=== PATIENT | female | born 1965 | race Caucasian/White ===

== ENCOUNTER → 2016-06-05 | Outpatient (CLI) | payer BC ==
--- NOTE | 2016-06-05 19:00 | WWHP ---
DATE OF SERVICE: 06/05/2016 CHIEF COMPLAINT: The patient is here for her routine gynecologic exam. HPI: This is a 51-year-old G1, P1-0-0-2 with an LMP of 2007. The patient has been essentially amenorrheic since her endometrial ablation in 2007. She denies any significant hot flashes. She is without gynecologic complaints and denies any vaginal bleeding for several years. PAST MEDICAL HISTORY: Hypothyroidism, anxiety, depression. Dr. De La Cruz is her primary care physician. MEDICATIONS: 1. Synthroid 150 mcg daily. 2. Xanax 1 mg b.i.d. p.r.n. 3. Wellbutrin. XR 300 mg q.a.m. 4. Aspirin 81 mg daily. 5. Multivitamin daily. 6. Vitamin D. 7. Biotin. 8. Cranberry supplement. 9. Iron. 10. Probiotic. 11. Echinacea. 12. Vitamin B12. 13. Fish oil supplement. 14. Calcium. 15. Zinc daily. ALLERGIES: No known drug allergies. PAST SURGICAL HISTORY: Appendectomy, and removal of ruptured ovarian cyst in the past. These were done together laparoscopically, laparoscopic cholecystectomy, lap band surgery approximately 2008, colonoscopy at age 48. Past OB history: Vaginal delivery x1. 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 SOCIAL HISTORY: She denies tobacco and drug use and has 0 to 2 alcoholic drinks per month. 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 FAMILY HISTORY: Father had an MO and diabetes. REVIEW OF SYSTEMS: She did lose quite a bit of weight after her lap band surgery in 2008. Her weight has been stable for at least the last couple of years. She denies respiratory, cardiac, or GI problems. PHYSICAL EXAM: Blood pressure 127/60. Height 5 feet 6-1/2 inches. Weight 164 pounds. Temperature 97.6, pulse 69. This a well-developed, well-nourished white female who is alert and oriented x3 in no acute distress. HEENT is within normal limits. NECK: Supple without mass or thyromegaly. CHEST AND LUNGS: Clear to auscultation. HEART: Regular rate and rhythm. Breasts are without mass or discharge. Axillary exam is negative for adenopathy. BACK: Negative for CVA tenderness. ABDOMEN: Soft, nontender, without palpable masses. PELVIC EXAM: External genitalia reveals mild atrophy without lesions. Cervix and vagina reveals mild atrophy without lesions. There is no significant prolapse. The uterus is midposition, nongravid size and nontender. There are no palpable adnexal masses or tenderness. Rectovaginal exam is negative for mass or tenderness and is negative for occult blood. EXTREMITIES: Nontender. IMPRESSION: 1. A 51-year-old female with normal gynecologic exam. 2. Probable perimenopause. 3. Amenorrhea following her endometrial ablation. PLAN: 1. Pap smear was performed. 2. Self-breast examination was discussed. 3. Mammogram was done in 07/2015, and a slip was given to patient for this to repeat after one year. 4. Osteoporosis prevention was discussed. 5. She will call if she has vaginal bleeding or significant menopausal symptoms. 6. She will return in one year.
--- NOTE | 2016-06-19 21:46 | WWPLE ---
June 19, 2016 RE: Marina Haley A Dear Dr. De La Cruz, I had the pleasure seeing your patient Marina Haley in the office on 06/05/16. As you know, she is a 51-year-old female who presented for her routine gynecologic exam. She has been amenorrheic since her endometrial ablation and is probably perimenopausal. Her gynecologic exam was unremarkable. Her Pap smear did come back showing atypical squamous cells of undetermined significance. Reflex HPV testing was negative for high-risk HPV. With this minor abnormality and negative HPV testing, I have recommended repeating the Pap smear in one year, and nothing further needs to be done at this time. Her Pap smear will be due in 08/13, and an order slip was given to the patient for this. Thank you for allowing me to participate in the care of your patient. Please do not hesitate to call if you have any questions. Sincerely, Orestes Ferrara M.D. DAVID
== END | disposition home or self-care (01) ==
LOC: WWCWWP 08:08
PROVIDERS: ATTEND Obstetrics & Gynecology

== ENCOUNTER → 2016-08-01 | Outpatient (CLI) | payer BC ==
--- NOTE | 2016-08-02 11:33 | MM ---
Reason for exam: screening (asymptomatic). Last mammogram was performed 1 year ago. History: Patient had first child at age 32. Took hormonal contraceptives for 1 year. Physical Findings: A clinical breast exam by your physician is recommended on an annual basis and results should be correlated with mammographic findings. MG 3D Screening Mammo W/Cad Bilateral CC and MLO view(s) were taken. Prior study comparison: August 01, 2015, bilateral MG 3d screening mammo w/cad. February 05, 2014, bilateral MG screening mammo w CAD. The breast tissue is heterogeneously dense. This may lower the sensitivity of mammography. Finding: There are grouped/clustered calcifications in the right breast approximate distance is 9.1cm from the nipple. New finding since August 01, 2015 and February 05, 2014. ASSESSMENT: Incomplete: need additional imaging evaluation, BI-RAD 0 RECOMMENDATION: Special view mammogram of the right breast. [facility] will attempt to contact patient to return for supplemental views.
== END | disposition home or self-care (01) ==
LOC: RADMAMWWP 07:11
PROVIDERS: ATTEND Obstetrics & Gynecology
DX: Z12.31 Encounter for screening mammogram for malignant neoplasm of breast (principal)
CPT/HCPCS: 77063; G0202

== ENCOUNTER → 2016-08-28 | Outpatient (CLI) | payer BC ==
--- NOTE | 2016-08-28 11:35 | MM ---
Reason for exam: additional evaluation requested from abnormal screening. Last mammogram was performed 1 month ago. History: Patient had first child at age 32. Took hormonal contraceptives for 1 year. Physical Findings: Nurse did not find any significant physical abnormalities on exam. MG Work Up Mamm w CAD RT ML, CC with magnification, and MLO with magnification view(s) were taken of the right breast. Prior study comparison: August 01, 2016, bilateral MG 3d screening mammo w/cad. August 01, 2015, bilateral MG 3d screening mammo w/cad. Finding: There are typically benign round, regional, diffuse, and grouped calcifications in the right breast. No suspicious cluster of microcalcifications. Increase in number of calcifications since August 01, 2016 and August 01, 2015. These results were verbally communicated with the patient and result sheet given to the patient on 08/28/16. ASSESSMENT: Benign, BI-RAD 2 RECOMMENDATION: Return to routine screening mammogram schedule for both breasts.
== END | disposition home or self-care (01) ==
LOC: RADMAMWWP 10:27
PROVIDERS: ATTEND Obstetrics & Gynecology
DX: R92.8 Other abnormal and inconclusive findings on diagnostic imaging of breast (principal)

== ENCOUNTER → 2017-08-29 | Outpatient (CLI) | payer BC ==
--- NOTE | 2017-08-29 11:54 | MM ---
Reason for exam: additional evaluation requested from abnormal screening. Last mammogram was performed less than 1 month ago. History: Patient had first child at age 32. Took hormonal contraceptives for 1 year. Physical Findings: A clinical breast exam by your physician is recommended on an annual basis and results should be correlated with mammographic findings. MG 3D Work Up W/Cad RUCHI Bilateral ML with magnification, CC with magnification, and ML view(s) were taken. Prior study comparison: August 14, 2017, bilateral MG 3d screening mammo w/cad. August 28, 2016, right breast MG work up mamm w CAD RT. The breast tissue is heterogeneously dense. This may lower the sensitivity of mammography. There are 3 groups of upper outer quadrant right breast calcifications similar to 2017, one at middle depth and two at posterior depth. The left central middle depth 4mm group of faint calcifications is not seen on CC and appear punctate. 6 month follow up bilateral diagnostic mammogram is recommended for both breasts. Numerous other bilateral scattered calcifications are seen. These results were verbally communicated with the patient and result sheet given to the patient on 08/29/17. ASSESSMENT: Probably benign, BI-RAD 3 RECOMMENDATION: Follow-up diagnostic mammogram of both breasts in 6 months.
--- NOTE | 2017-09-03 17:16 | P.PN ---
Progress Note - Text Progress Note Date: 09/03/17 And order slip for a diagnostic bilateral mammogram to be done in late January or early February in 2018 was mailed to the patient.
== END | disposition home or self-care (01) ==
LOC: RADMAMWWP 09:28
PROVIDERS: ATTEND Obstetrics & Gynecology
DX: R92.8 Other abnormal and inconclusive findings on diagnostic imaging of breast (principal)
CPT/HCPCS: 77062; 77066

== ENCOUNTER → 2018-03-14 | Outpatient (CLI) | payer BC ==
[2018-03-14 10:05] VITALS: BP 107/57; PULSE 71; RESP 18; TEMP 96.9; BMI 22.7
--- NOTE | 2018-03-14 10:48 | P.GSHP ---
History of Present Illness H&P Date: 03/14/18 Chief Complaint: abnormal mammogram of the right breast Bo is a 52-year-old white female who presents with a mammographic abnormality noted in her right breast. The patient had a bilateral diagnostic mammogram performed on [id number]. In the left breast there was noted to be architectural distortion in the upper quadrant disbursing on compression and short-term follow-up was recommended. In the right breast multiple spherical calcifications were noted. Additionally there were some suspicious punctate calcifications in the right lower outer quadrant 10 cm from the nipple and biopsy was recommended. These were felt to be new since 08/29/2017. The patient herself denies any changes in her breast. She does not feel any masses or nodules for which she is concerned. She has no nipple discharge or changes for which she is concerned. She has no history of trauma or infection of the breast. She denies any pain in her breast. Family history: 1.no history of cancer 2. father heart disease and DM Hormonal history: Menarche:10 Pregnancies: 1, (2 children), at 32, breast fed: no menopause: uterine ablation at about 38 BCP: 5 years hormones: none Past Surgical History: 1. uterine ablation 2. appy 3. ruptured ovarin cyst at the time of appy 4. gallbladder 5. lap-band (lost 105 pounds) 6. abcess right thigh 7. heart cath Past Medical History: 1. chest pain/follows with cardiology Social History: smoke: none alcohol: occasional/monthy drugs: none - Constitutional Comment: BMI 22.7 Constitutional: Denies chills, Denies fever - EENT Comment: bifocal glasses Eyes: denies blurred vision, denies pain Ears: deny: decreased hearing, tinnitus Ears, nose, mouth and throat: Denies headache, Denies sore throat - Breasts Breasts: bilateral: as per HPI - Cardiovascular Cardiovascular: Reports as per HPI, Reports chest pain - Respiratory Respiratory: Denies cough, Denies 7 - Gastrointestinal Gastrointestinal: Denies abdominal pain, Denies diarrhea, Denies nausea, Denies vomiting - Genitourinary (Female) Genitourinary: Denies dysuria, Denies hematuria - Menstruation Menstruation: Reports postmenopausal - Musculoskeletal Comment: arthritis Musculoskeletal: Denies myalgias - Integumentary Integumentary: Denies pruritus, Denies rash - Neurological Neurological: Denies numbness, Denies weakness - Psychiatric Psychiatric: Reports anxiety, Reports depression - Endocrine Comment: hypothyroid Endocrine: Denies fatigue, Denies weight change - Hematologic/Lymphatic Comment: none - Allergic/Immunologic Allergic/Immunologic: Reports seasonal allergies Past Medical History Past Medical History: Thyroid Disorder Additional Past Medical History / Comment(s): See psychiatric history. 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 She is status post endometrial ablation in 2007. She had one twin vaginal delivery. History of Any Multi-Drug Resistant Organisms: None Reported Past Surgical History: Appendectomy, Bariatric Surgery, Cholecystectomy, Uterine Ablation Additional Past Surgical History / Comment(s): Laparoscopy for ruptured ovarian cyst. LapBand surgery in 2008. Colonoscopy at age 48. Past Psychological History: Anxiety, Depression Smoking Status: Former smoker Past Alcohol Use History: Occasional Past Drug Use History: None Reported - Past Family History Father Family Medical History: Diabetes Mellitus, Hypertension, Myocardial Infarction ( [place]) Mother Family Medical History: Thyroid Disorder Additional Family Medical History / Comment(s): mental illness, anxiety, depression. Medications and Allergies Home Medications Medication Instructions Recorded Confirmed Type ALPRAZolam [Xanax] 1 mg PO Q8HR 08/14/17 03/14/18 History Aspirin [Adult Low Dose Aspirin EC] 81 mg PO DAILY 08/14/17 03/14/18 History Cholecalciferol [Vitamin D3] 1,000 unit PO DAILY 08/14/17 03/14/18 History Levothyroxine Sodium [Synthroid] 150 mcg PO DAILY 08/14/17 03/14/18 History Multivitamins, Thera [Multivitamin 1 tab PO DAILY 08/14/17 03/14/18 History (formulary)] buPROPion HCL [Wellbutrin XL] 300 mg PO DAILY 08/14/17 03/14/18 History Allergies Allergy/AdvReac Type Severity Reaction Status Date / Time No Known Allergies Allergy Verified 08/14/17 07:56 Surgical - Exam Vital Signs Temp Pulse Resp BP Pulse Ox 96.9 F L 71 18 107/57 98 03/14/18 09:53 03/14/18 09:53 03/14/18 09:53 03/14/18 09:53 03/14/18 09:53 BMI 22.7 - General well developed, well nourished, no distress - Eyes normal ocular movement, no icteric - ENT no hearing loss, no congestion - Neck no masses, trachea midline - Respiratory normal respiratory effort, clear to auscultation - Cardiovascular Rhythm: regular Heart Sounds: normal: S1, S2 - Abdomen Abdomen: soft, non tender, no guarding, no rigid, no rebound - Integumentary normal turger - Neurologic no disoriented, no combative - Musculoskeletal normal gait, normal posture - Psychiatric oriented to time, oriented to person, oriented to place, speech is normal, memory intact Breast examination: Right breast: Multi-positional exam no dominant masses or nodules of concern, right breast is slightly larger than the left breast Right axilla: No adenopathy of concern Left breast: Multi-positional exam no dominant masses or nodules of concern Left axilla: No adenopathy of concern Results mammogram results reviewed Assessment and Plan Assessment: Impression: 1. Mammographic abnormality right breast, microcalcifications for which stereotactic core biopsy recommended: Left breast repeat mammogram in 6 months or recommended 2. Fibrocystic breast changes 3. Anxiety/depression 4. Chest pain for about coronary artery disease follows with cardiology 5. Hypothyroidism Plan: 1. Right breast stereotactic core biopsy 2. Left breast repeat mammogram in 6 months time 3. Medical management of medical problems We have discussed stereotactic biopsy including the risks and benefits of the procedure. Options are discussed and the patient wishes to proceed with stereotactic core biopsy. This will be scheduled in the near future. Cc: Dr. De La Cruz, Dr. Ferrara
== END | disposition home or self-care (01) ==
LOC: WWCWWP 09:48
PROVIDERS: ATTEND Surgery
DX: Z53.9 Procedure and treatment not carried out, unspecified reason (principal)

== ENCOUNTER → 2018-04-04 | Day surgery (SDC) | payer BC ==
[2018-04-04 07:27] VITALS: BP 94/61; PULSE 80; RESP 16; TEMP 97.6; BMI 22.7
--- NOTE | 2018-04-04 09:27 | P.GSHP ---
History of Present Illness H&P Date: 04/04/18 Chief Complaint: Mammographic abnormality right breast Marina is a 52-year-old white female who was noted to have a mammographic abnormality in her right breast. She had bilateral diagnostic mammograms performed in February 2018. She was recommended to undergo a stereotactic core biopsy of the right breast however the area of concern was very superficial and felt to be in close proximity to a blood vessel. Therefore after review of the radiographs with Dr. Allen it was recommended that she undergo needle localization and excisional biopsy of this area. In the left breast there had been noted to be some architectural distortion in the upper quadrant which dispersed on compression in short-term follow-up was recommended. In the right breast multiple spherical calcifications were noted. Additionally there were suspicious punctate calcifications in the right lower quadrant 10 cm from the nipple for which biopsy was recommended. The patient denies any history of trauma or infection to the breast. Family history: 1. No history of cancer 2. Father history of heart disease and diabetes Hormonal history: Menarche: 10 Pregnancies: 1, 2 children, at 32, did not breast-feed Menopause: Uterine ablation at 38 Procedure control pills: 5 years Hormones: None Past surgical history: 1. Uterine ablation 2. Appendectomy 3. Ruptured ovarian cyst the time of the appendectomy 4. Cholecystectomy 5. Lap band 6. Abscess right thigh 7. Heart Medical history 1. Chest pain follows with cardiology Smoke: Negative Alcohol: Monthly Drugs: Negative - Constitutional Comment: BMI 22.7 Constitutional: Denies chills, Denies fever - EENT Eyes: denies blurred vision, denies pain Ears: deny: decreased hearing, tinnitus Ears, nose, mouth and throat: Denies headache, Denies sore throat - Breasts Breasts: bilateral: as per HPI - Cardiovascular Cardiovascular: Reports as per HPI - Respiratory Respiratory: Denies cough, Denies 7 - Gastrointestinal Gastrointestinal: Denies abdominal pain, Denies diarrhea, Denies nausea, Denies vomiting - Genitourinary (Female) Genitourinary: Denies dysuria, Denies hematuria - Menstruation Menstruation: Reports postmenopausal - Musculoskeletal Comment: arthritis - Integumentary Integumentary: Denies pruritus, Denies rash - Neurological Neurological: Denies numbness, Denies weakness - Psychiatric Psychiatric: Reports anxiety, Reports depression - Endocrine Comment: hypothyroid - Hematologic/Lymphatic Comment: none - Allergic/Immunologic Allergic/Immunologic: Reports seasonal allergies Past Medical History Past Medical History: Thyroid Disorder Additional Past Medical History / Comment(s): See psychiatric history. Hypothyroidism. 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 She is status post endometrial ablation in 2007. She had one twin vaginal delivery. History of Any Multi-Drug Resistant Organisms: None Reported Past Surgical History: Appendectomy, Bariatric Surgery, Cholecystectomy, Uterine Ablation Additional Past Surgical History / Comment(s): Laparoscopy for ruptured ovarian cyst. LapBand surgery in 2008. Colonoscopy at age 48. Past Anesthesia/Blood Transfusion Reactions: No Reported Reaction Additional Past Anesthesia/Blood Transfusion Reaction / Comment(s): No blood transfusion to date Past Psychological History: Anxiety, Depression Additional Psychological History / Comment(s): Takes Wellbutrin daily and Xanax prn Smoking Status: Never smoker Past Alcohol Use History: Occasional Past Drug Use History: None Reported - Past Family History Father Family Medical History: Diabetes Mellitus, Hypertension, Myocardial Infarction ( [place]) Mother Family Medical History: Thyroid Disorder Additional Family Medical History / Comment(s): mental illness, anxiety, depression. Medications and Allergies Home Medications Medication Instructions Recorded Confirmed Type ALPRAZolam [Xanax] 1 mg PO Q8HR 08/14/17 04/04/18 History Aspirin [Adult Low Dose Aspirin EC] 81 mg PO DAILY 08/14/17 04/04/18 History Cholecalciferol [Vitamin D3] 1,000 unit PO DAILY 08/14/17 04/04/18 History Levothyroxine Sodium [Synthroid] 150 mcg PO DAILY 08/14/17 04/04/18 History Multivitamins, Thera [Multivitamin 1 tab PO DAILY 08/14/17 04/04/18 History (formulary)] buPROPion HCL [Wellbutrin XL] 300 mg PO DAILY 08/14/17 04/04/18 History Allergies Allergy/AdvReac Type Severity Reaction Status Date / Time No Known Allergies Allergy Verified 04/04/18 07:19 Surgical - Exam Vital Signs Temp Pulse Resp BP 97.6 F 80 16 94/61 04/04/18 07:21 04/04/18 07:21 04/04/18 07:21 04/04/18 07:21 - General well developed, well nourished, no distress - Eyes normal ocular movement, no icteric - ENT no hearing loss, no congestion - Neck no masses, trachea midline - Respiratory normal respiratory effort, clear to auscultation - Cardiovascular Rhythm: regular Heart Sounds: normal: S1, S2 - Abdomen Abdomen: soft - Integumentary normal turger - Neurologic no disoriented, no combative - Musculoskeletal normal gait, normal posture - Psychiatric oriented to time, oriented to person, oriented to place, speech is normal, memory intact Breast examination: Right breast: Multiple positional exam no dominant masses or nodules of concern Right axilla: No adenopathy of concern Left breast: Multiple positional exam no dominant masses or nodules of concern Left axilla: No adenopathy of concern Results Mammogram right breast reviewed Assessment and Plan Assessment: Impression: 1. Mammographic abnormality right breast for which stereotactic core biopsy was attempted but was unable to be performed 2. Fiber cystic breast changes 3. Anxiety depression 4. Chest pain patient follows with cardiology 5. Hypothyroidism Plan: 1. Needle localization excisional biopsy of area of concern in the right breast 2. Left breast repeat mammogram in 6 months 3. Medical clearance I have discussed the case with the patient including the risk and benefits of needle localization and open excision. The patient understands and wishes to proceed in the near future. Cc: Dr. De La Cruz, Dr. Ferrara
--- NOTE | 2018-04-04 10:50 | MM ---
EXAMINATION TYPE: MG discontinued stereo core RT DATE OF EXAM: 04/04/2018 COMPARISON: 03/12/2018 CLINICAL HISTORY: Right breast calcifications marked on diagnostic images dated 03/12/2018 and the up per central, slightly lower right breast at middle depth. TECHNIQUE: Stereotactic guided core biopsy of right breast. FINDINGS: The procedure of stereotactic guided core biopsy was explained to the patient. Benefits, a lternatives, and risks were discussed. An informed consent was then obtained. Preprocedural timeout was performed. After localization the calcifications measuring approximately 7 mm within the upper central, slightly lower right breast at were seen overlying 2 vessels that could not be removed despite multiple attem pts. Some appear to be intravascular and therefore stereotactic guided biopsy was canceled. Dr. Nima schultz agreed to this finding and decision was made to proceed with needle localization/open biopsy. IMPRESSION: CANCELLATION OF A RIGHT STEREOTACTIC GUIDED BIOPSY DUE TO ADJACENT VASCULATURE IN THE APPEARANCE OF S OME CALCIFICATIONS POSSIBLY WITHIN THE VASCULATURE.
== END ==
LOC: RADMAMWWP 07:01
PROVIDERS: ATTEND Surgery
DX: R92.8 Other abnormal and inconclusive findings on diagnostic imaging of breast (principal); Z53.8 Procedure and treatment not carried out for other reasons; R92.1 Mammographic calcification found on diagnostic imaging of breast; E03.9 Hypothyroidism, unspecified; F41.9 Anxiety disorder, unspecified; F32.9 Major depressive disorder, single episode, unspecified; N60.19 Diffuse cystic mastopathy of unspecified breast; R07.9 Chest pain, unspecified; Z79.82 Long term (current) use of aspirin; Z79.890 Hormone replacement therapy; Z79.899 Other long term (current) drug therapy; Z90.49 Acquired absence of other specified parts of digestive tract; Z98.84 Bariatric surgery status; Z82.49 Family history of ischemic heart disease and other diseases of the circulatory system

== ENCOUNTER 2018-05-06 07:07 | Day surgery (SDC) | payer BC ==
[2018-05-01 14:47] VITALS: BMI 22.7
[~2018-05-06 07:07] MED LIST: ALPRAZolam 0.5 MG TAB PO PRN; DEXAMETHASONE SOD PHOSPHATE 10 MG/ML 1 ML VIAL IV ONE; HEPARIN SODIUM,PORCINE 5,000 UNIT/ML 1 ML VIAL SQ ONE; HYDROmorphone 0.5 MG/0.5 ML SYRINGE IVP PRN; LACTATED RINGERS 1,000 ML IV SCH; MORPHINE SULFATE 4 MG/ML SYRINGE IV PRN; ONDANSETRON 4 MG/2 ML VIAL IVP ONE; ONDANSETRON 4 MG/2 ML VIAL IVP PRN
[2018-05-06 07:33] VITALS: RESP 16
[2018-05-06] MEDS ORDERED: LIDOCAINE 1% 20 ML VIAL (10MG/ML) FOR IV START INTRADERMA ONE (07:44)
[2018-05-06] MEDS ORDERED: SODIUM BICARB 4% 5 ML VIAL (0.48 MEQ/ML) MISCELLANE ONE (09:15)
[2018-05-06] MEDS ORDERED: LIDOCAINE 1% INJ 10MG/ML (20 ML MDV) SQ ONE (09:15)
[2018-05-06] MEDS ORDERED: LIDOCAINE (PF) 10 MG/ML 2 ML VIAL SQ ONE ×2 (09:38)
[2018-05-06] MEDS ORDERED: LIDOCAINE 1% INJ 10MG/ML (20 ML MDV) ONE (10:11)
[2018-05-06] MEDS ORDERED: PROPOFOL 10 MG/ML 20 ML VIAL IV ONE (10:11)
[2018-05-06] MEDS ORDERED: fentaNYL (PF) 50 MCG/ML 2 ML AMP ONE (10:11)
[2018-05-06] MEDS ORDERED: MIDAZOLAM 2 MG/2 ML VIAL ONE (10:11)
[2018-05-06] MEDS ORDERED: HEPARIN SODIUM,PORCINE 5,000 UNIT/ML 1 ML VIAL SQ ONE (10:12)
--- NOTE | 2018-05-06 10:59 | P.OP ---
Date of Procedure: 05/06/18 Preoperative Diagnosis: Mammographic abnormality right breast, failed stereotactic core biopsy Postoperative Diagnosis: Same Procedure(s) Performed: Right breast needle localization excisional biopsy Anesthesia: MAC Surgeon: Jen Nolen Estimated Blood Loss (ml): 5 IV fluids (ml): 400 Pathology: other (breast tissue) Condition: stable Disposition: PACU Indications for Procedure: Mammographic abnormality right breast Operative Findings: Dense breast tissue Description of Procedure: Marina is a 53-year-old white female who had a mammographic abnormality noted in her right breast. An attempt at stereotactic core biopsy was performed. The lesion was noted to be quite superficial and felt to be close to blood vessels and radiology recommended needle localization and excisional biopsy in the operating room. Needle localization was performed. The patient was taken to the operating room and following sedation the right breast was prepped and draped in a sterile fashion. A cc of 1% lidocaine were used to anesthetize the area of concern. Incision was made and carried down to the hook of the needle. Surrounding tissue was excised. The specimen was painted and sent to radiology for confirmation that the area of concern about removed. The cavity was marked with titanium clips. The deep tissues were closed using 3-0 Vicryl suture. Posteriorly the dissection was carried down to the pectoralis muscle. Anteriorly the dissection was carried close underneath the skin. The skin was closed using a subcuticular suture of 4-0 Monocryl. All instrument and sponge counts were correct at the end of the case. The patient tolerated the procedure in stable condition.
--- NOTE | 2018-05-06 11:01 | P.DS ---
Providers Attending physician: Jen Nolen Primary care physician: Jay De La Cruz Plan - Discharge Summary New Discharge Prescriptions: No Action Multivitamins, Thera [Multivitamin (formulary)] 1 tab PO DAILY buPROPion HCL [Wellbutrin XL] 300 mg PO DAILY ALPRAZolam [Xanax] 1 mg PO Q8HR Levothyroxine Sodium [Synthroid] 150 mcg PO DAILY Cholecalciferol [Vitamin D3] 1,000 unit PO DAILY Discharge Medication List ALPRAZolam [Xanax] 1 mg PO Q8HR 08/14/17 [History] Cholecalciferol [Vitamin D3] 1,000 unit PO DAILY 08/14/17 [History] Levothyroxine Sodium [Synthroid] 150 mcg PO DAILY 08/14/17 [History] Multivitamins, Thera [Multivitamin (formulary)] 1 tab PO DAILY 08/14/17 [History ] buPROPion HCL [Wellbutrin XL] 300 mg PO DAILY 08/14/17 [History] Follow up Appointment(s)/Referral(s): Jen Nolen MD [STAFF PHYSICIAN] - 1 Week Activity/Diet/Wound Care/Special Instructions: Do not drive today May shower after 48 hours Wear bra at all times until seen by Dr. Herring Discharge Disposition: HOME SELF-CARE
[2018-05-06 11:29] VITALS: TEMP 96.8
[2018-05-06] MEDS ORDERED: HYDROcodone/APAP 5-325MG 1 EACH TAB PO ONE (12:40)
[2018-05-06 12:42] VITALS: BP 107/71; PULSE 63
--- NOTE | 2018-05-06 18:52 | MM ---
EXAMINATION TYPE: MG surgical specimen RT, MG pre op needle loc RT DATE OF EXAM: 05/06/2018 COMPARISON: 03/12/2018 and 04/04/2018 CLINICAL HISTORY: 53-year-old female referred for needle localization and excision of right breast mi crocalcifications. Discontinued stereotactic core needle biopsy on 04/04/2018 secondary to adjacent va sculature. TECHNIQUE: Needle localization with wire placement and surgical excision of area of concern in the la teral right breast. FINDINGS: The procedure of needle localization with wire placement and than surgical excision was exp lained to the patient. Benefits, alternatives, and risks were discussed. An informed consent was th en obtained. The shortest pathway for procedure was chosen. Shortest pathway was a lateral approach. The overlyin g skin was prepped and draped in usual sterile fashion. Lidocaine buffered with bicarbonate was used as anesthetic into the skin and subcutaneous tissue up to the level of area of concern. A 5 cm Kopa n's needle was used. It was placed via a lateral approach under mammographic guidance. Subsequent 9 0 degrees mammogram show the needle to be in satisfactory position relative to the targeted area. At this point, wire was placed and the needle was withdrawn. The wire was fixed to patient's skin. Im ages were marked for surgeon. The patient tolerated the procedure well without any immediate complication. The patient was kept in the radiology department for short stay after the procedure and then taken to surgery for surgical e xcision. Wire is identified in the specimen. Some landmarks including to coil cysts are identified in the spec imen as well. There is soft tissue distortion due to combination of surgery and local anesthesia whic h makes identification of the question microcalcifications difficult. Because of this, 3 month follow -up mammogram will be recommended. The patient was kept in hospital for short stay after the procedure and then discharged home in stabl e condition. IMPRESSION: Uncomplicated needle localization with wire placement and surgical excision of targeted lateral right breast microcalcifications. Note previous canceled stereotactic biopsy due to adjacent vasculature. Also, note difficulty in visualizing the targeted calcifications on specimen mammogram. This is suspe cted to be due to tissue distortion from surgery and local anesthetic injection. Landmarks within the specimen suggest that targeted calcifications should be present. Full pathology results to follow. If benign results, 3 month follow-up diagnostic right breast mammogram will be recommended.
== END 2018-05-06 13:19 | disposition home or self-care (01) ==
LOC: OR 07:07
PROVIDERS: ATTEND Surgery
DX: N60.11 Diffuse cystic mastopathy of right breast (principal); E03.9 Hypothyroidism, unspecified; F41.9 Anxiety disorder, unspecified; F32.9 Major depressive disorder, single episode, unspecified; K21.9 Gastro-esophageal reflux disease without esophagitis; Z98.84 Bariatric surgery status; Z79.82 Long term (current) use of aspirin; Z79.890 Hormone replacement therapy; Z79.899 Other long term (current) drug therapy
CPT/HCPCS: 88307; 76098; 19281; J2250; J2001 ×2; J1644; J1100; J2405; J3010; J2704

== ENCOUNTER → 2018-05-08 | Outpatient (CLI) | payer BC ==
--- NOTE | 2018-05-08 13:17 | P.PN ---
Progress Note - Text Progress Note Date: 05/08/18 Marina is a 53-year-old white female who is status post right breast biopsy 2 days ago. The patient was doing well with minimal discomfort when she evaluated the area and noted that there was erythema at the site. She has no fever or chills. She did have a reaction in the more medial aspect of the breast related to some tape which had been applied. Physical examination: Lungs clear: Heart: Regular rate and rhythm Incision: Clean and dry with erythema at the posterior aspect of the incision extending approximately 3 cm. At the anterior aspect of the incision there is some mild ecchymosis with a small amount of erythema There is no evidence of any drainage at the incision no place for any cultures to be obtained Impression: 1. Patient status post right breast needle localization excisional biopsy 2. Erythema near the site of the incision uncertain as to whether this represents a infectious etiology versus inflammatory or ALLERGIC reaction Plan: 1. The area of erythema was marked with a skin marking pen and will be followed closely 2. Patient is started on Keflex 3. Follow-up tomorrow if the area becomes warm, painful, or increases in size she will call us immediately
== END ==
LOC: WWCWWP 13:06
PROVIDERS: ATTEND Surgery
DX: Z53.9 Procedure and treatment not carried out, unspecified reason (principal)

== ENCOUNTER → 2018-05-09 | Outpatient (CLI) | payer BC ==
[2018-05-09 15:12] VITALS: BP 109/72; PULSE 65; RESP 18; TEMP 97.9; BMI 22.7
--- NOTE | 2018-05-09 15:40 | P.PN ---
Progress Note - Text Progress Note Date: 05/09/18 The patient returns today for repeat evaluation of the surgical site which became erythematous after the procedure done on Saturday. The patient has had no fever or chills. The area of erythema in the lateral aspect of the incision appears to be more ecchymotic at this time. The patient does appear to have some blistering in relationship to the Steri-Strips. Additionally there appears to be some punctate erythematous patches consistent with a rash extending more medial on the breast from the area of original erythema noted yesterday. The patient is not complaining of itching she is not complaining of pain. She does not complain of any fever or chills or warmness to the area. Patient's pathology was available and the findings were benign with some microscopic mineralization's identified Examination: The patient has a 13 x 9 cm area of rash/erythema near the area of her incision. The more lateral aspect appears to more ecchymotic and there appears to be erythematous rash papules which have extended onto the anterior abdominal wall separate from the area of the incision. The patient has some blistering near the area of the Steri-Strips. The patient has in the medial area of the breast were taped was located that a similar area of erythema and a raised rash all to be related to the tape. Impression: 1. Inflammatory/ALLERGIC reaction area of right breast biopsy 2. No definite infection Plan: 1. Continue antibiotic prophylactically 2. Martian have discussed with pharmacy the patient will take 25 mg every 12 hours as needed, the patient is informed not to drive and she does take Xanax and Wellbutrin she is not going to take Temple. 3. Follow-up on Saturday if this gets worse she will come to the emergency room
== END ==
LOC: WWCWWP 14:12
PROVIDERS: ATTEND Surgery
DX: Z53.9 Procedure and treatment not carried out, unspecified reason (principal)

== ENCOUNTER → 2018-05-13 | Outpatient (CLI) | payer BC ==
--- NOTE | 2018-05-13 08:51 | P.PN ---
Subjective Progress Note Date: 05/13/18 Marina returns today for wound evaluation. She has seen a retail and restaurant associate regarding the erythema near the incision site and has been started on Triamcinolone cream as well at Mucpirocin cream and Benadry. She has been taking the antibiotic Keflex without any resolution. The area of erythema has extended more widely around the area of the incision it is raised and plaque like in nature. Additionally the patient has developed a rash which is maculopapular over her anterior chest separate from the area of the incision. The patient does not report any fever or chills. The patient does report some itching over the area of the chest. Physical exam: Maculopapular rash coalesced over the area of the incision in the lateral aspect of the right breast Yesterday the patient states the rash started over her anterior chest Impression: 1. ALLERGIC reaction right lateral breast and anterior chest does not appear to be infectious in nature Plan: 1. Patient may stop antibiotics 2. Follow-up with dermatology today 3. Follow-up here 4. Consider infectious disease consult if this fails to resolve
== END ==
LOC: WWCWWP 08:30
PROVIDERS: ATTEND Surgery
DX: Z53.9 Procedure and treatment not carried out, unspecified reason (principal)

== ENCOUNTER → 2018-05-15 | Outpatient (CLI) | payer BC ==
[2018-05-15 14:59] VITALS: BP 119/67; PULSE 77; RESP 16; TEMP 96.6; BMI 22.4
--- NOTE | 2018-05-15 15:00 | P.PN ---
Progress Note - Text Progress Note Date: 05/15/18 Patient presents for recheck of the area of the ALLERGIC reaction right lateral breast. She has been seen by dermatology and I have had a conversation with seal mixer believes that this is an ALLERGIC reaction possibly to the Steri- Strips versus the Betadine versus Mastisol. When this is resolved his recommended a patch test of the skin be done to try to ascertain the cause of the ALLERGY. She's been treated with steroid injections and he has prescribed steroid cream to the area. The area of concern has become less erythematous, less raised, and there are no blisters present. The area on the sternal region has resolved. The area in the medial aspect of the lower chest wall has largely resolved. The patient is doing well at this time. Physical examination: Resolution of the area of erythema on this sternal region Decreased erythema near the area of the incision, and no blistering present No evidence of infection Plan: 1. Repeat right breast mammogram 3 months from the biopsy 2. Continue care as per dermatology 3. Patch test of the skin as per dermatology 4. Follow up here in 2 weeks CC: Dr. De La Cruz
== END ==
LOC: WWCWWP 14:45
PROVIDERS: ATTEND Surgery
DX: Z53.9 Procedure and treatment not carried out, unspecified reason (principal)

== ENCOUNTER → 2018-05-29 | Outpatient (CLI) | payer BC ==
[2018-05-29 08:28] VITALS: BP 102/68; PULSE 70; RESP 18; TEMP 97.7; BMI 22.7
--- NOTE | 2018-05-29 08:53 | P.PN ---
Subjective Progress Note Date: 05/29/18 Marina is a 53-year-old white female who is status post right breast needle local excisional biopsy. Following the biopsy she developed a rash over her breast and onto her chest wall. She was seen by dermatology and treated with resolution of the rash. At this time she is doing well with no complaints. The pathology was benign breast parenchyma with fibrocystic disease. Focal microscopic intraductal mineralization's were identified throughout the specimen. Despite this it was difficult to ascertain with certainty that the microcalcifications of concern had been removed on the radiograph of the specimen. It is therefore been recommended to Marina undergo repeat right breast mammogram in 3 months time. Physical exam: Examination is limited to the right breast. Incision is clean and dry There is no evidence of any rashes this time Impression: 1. Rash following needle local excisional biopsy of right breast, this may be due to the tape versus the Betadine and possible sensitivity testing was dermatology will be performed 2. Resolution of the rash at this time 3. Benign tissue noted on breast biopsy however concerned that the area of calcifications were adequately sampled Plan: 1. Follow-up with dermatology 2. Repeat right breast mammogram in 3 months time Cc: Dr. De La Cruz Objective - Vital Signs Vital signs: Vital Signs Temp 97.7 F 05/29/18 08:20 Pulse 70 05/29/18 08:20 Resp 18 05/29/18 08:20 BP 102/68 05/29/18 08:20 Pulse Ox 99 05/29/18 08:20 Intake & Output 05/28/18 05/29/18 05/29/18 18:59 06:59 18:59 Weight 65.771 kg
== END | disposition home or self-care (01) ==
LOC: WWCWWP 08:06
PROVIDERS: ATTEND Surgery
DX: Z53.9 Procedure and treatment not carried out, unspecified reason (principal)

== ENCOUNTER → 2018-08-06 | Outpatient (CLI) | payer BC ==
--- NOTE | 2018-08-06 09:53 | MM ---
Reason for exam: additional evaluation requested from prior study. Last mammogram was performed 5 months ago. History: Patient is postmenopausal and had first child at age 32. Benign MG pre op needle loc RT of the right breast, May 06, 2018. MG discontinued stereo core RT of the right breast, April 04, 2018. Took hormonal contraceptives for 1 year. Physical Findings: Nurse did not find any significant physical abnormalities on exam. MG 3D Diag Mammo W/Cad RUCHI Bilateral CC and MLO view(s) were taken. Prior study comparison: March 12, 2018, bilateral MG 3d diag mammo w/cad RUCHI. August 29, 2017, bilateral MG 3d work up w/cad RUCHI. The breast tissue is heterogeneously dense. This may lower the sensitivity of mammography. There is a low density mass at 1 o'clock posterior depth and low density mass at the biopsy site, likely developing fat necrosis. Benign appearing bilateral calcifications. Post surgical change on the right. These results were verbally communicated with the patient and result sheet given to the patient on 08/06/18. ASSESSMENT: Incomplete: need additional imaging evaluation, BI-RAD 0 RECOMMENDATION: Ultrasound of the right breast.
--- NOTE | 2018-08-06 09:57 | USB ---
Reason for exam: additional evaluation requested from abnormal screening. History: Patient is postmenopausal and had first child at age 32. Benign MG pre op needle loc RT of the right breast, May 06, 2018. MG discontinued stereo core RT of the right breast, April 04, 2018. Took hormonal contraceptives for 1 year. US Breast Limited RT Right limited breast ultrasound including focal area of concern, retroareolar and axilla demonstrates a 1.2 x 0.8 x 0.8cm irregular, hypoechoic lesion at the posterior nipple that corresponds to mammographic finding at 12-1 o'clock posterior depth and a 0.7 x 0.4 x 0.7cm oval, hypoechoic lesion at 9 o'clock that appears as a complicated cyst. At biopsy site a vascular mass likely fat necrosis. These results were verbally communicated with the patient and result sheet given to the patient on 08/06/18. ASSESSMENT: Suspicious, BI-RAD 4 RECOMMENDATION: Ultrasound core biopsy of the right breast. Called with mammographic findings and has scheduled an appointment for the patient for 07/28/[address] Nolen. Biopsy scheduled for 08/18/18 at 8 o'clock. PRELIMINARY REPORT CALLED AND FAXED TO DR. NOLEN ON 08/06/18.
== END | disposition home or self-care (01) ==
LOC: RADMAMWWP 06:58
PROVIDERS: ATTEND Surgery
DX: R92.8 Other abnormal and inconclusive findings on diagnostic imaging of breast (principal)
CPT/HCPCS: 77062; 77066

== ENCOUNTER → 2018-08-14 | Outpatient (CLI) | payer BC ==
[2018-08-14 08:43] VITALS: BP 109/74; PULSE 78; RESP 18; TEMP 97.5; BMI 21.1
--- NOTE | 2018-08-14 09:20 | P.PN ---
Subjective Progress Note Date: 08/14/18 Principal diagnosis: abnormal mammogram and ultrasound of the right breast There is a 53-year-old white female who is status post right breast open biopsy in April 2018. Pathology revealed focal microscopic intraductal nebulizations and benign breast parenchyma. The patient had a repeat mammogram done to ascertain that we had adequately sampled the area of concern. It is felt that the area of concern was sampled adequately but on a repeat mammogram there was noted to be a low-density mass at the 1:00 posterior position of the right breast likely developing fat necrosis. Benign-appearing bilateral calcifications were noted with postsurgical changes on the right. The patient then underwent an ultrasound of the right breast which revealed a 1.2 cm x 0.8 cm hypoechoic lesion at the posterior nipple that corresponded to the mammographic finding at 12:00. Additionally a 0.7 cm lesion at 9:00 was most likely a complicated cyst. At the biopsy site in the area which most likely was fat necrosis was identified. Ultrasound core biopsy of the right breast was recommended. The patient states that she has been doing well since her open biopsy without any masses noted in her breast. Following open biopsy she developed a skin reaction was seen by dermatology because of the reaction is uncertain as to whether it was related to the tape of the Betadine. The patient is not allergic to iodine. The patient at this time does not have any masses in her breasts. She has no pain in her breast except related to when she had the ultrasound procedure performed from the pressure with the procedure, and no evidence of any infection in her breast. Family history: Negative Hormonal history: Menarche: 10 Pregnancies: 1, 2 children, 32 did not breast feed Menopause: Uterine ablation at 38 control pills: 5 years Hormones: Negative Past surgical history: 1. Uterine ablation 2. Appendectomy 3. Left ovarian cyst at the time of the appendectomy 4. Cholecystectomy 5. Lap and 6. Abscess right thigh 7. Cardiac catheterization everything was fine Medical history: 1. Chest pain for which she had cardiac catheterization is resolved at this time Social history: Smoke: Negative Alcohol: Monthly Drugs: Negative Review of systems: HEENT negative Lungs negative Heart chest pain resolved followed with cardiology GI negative negative postmenopausal Musculoskeletal arthritis Integument: Rash following last biopsy which required being seen by dermatology at this time is completely resolved Neurologic: Negative Psychiatric: Anxiety, depression Endocrine: Hypothyroid Hematologic: Negative Objective - Vital Signs Vital signs: Vital Signs Temp 97.5 F L 08/14/18 08:34 Pulse 78 08/14/18 08:34 Resp 18 08/14/18 08:34 BP 109/74 08/14/18 08:34 Pulse Ox 99 08/14/18 08:34 Intake & Output 08/13/18 08/14/18 08/14/18 18:59 06:59 18:59 Weight 61.235 kg - Exam BMI 21.1 - Constitutional General appearance: Present: average body habitus - EENT Eyes: Present: EOMI ENT: Present: hearing grossly normal - Neck Neck: Present: normal ROM - Respiratory Respiratory: bilateral: CTA - Cardiovascular Rhythm: regular Heart sounds: normal: S1, S2 - Gastrointestinal General gastrointestinal: Present: soft - Musculoskeletal Musculoskeletal: Present: gait normal - Psychiatric Psychiatric: Present: A&O x's 3, appropriate affect, intact judgment & insight - Additional findings Additional findings: breast exam: Right breast: Multiple positional exam no dominant masses or nodules of concern, but breast is slightly larger than the left breast, fibrocystic changes Right axilla: Shotty adenopathy no worrisome adenopathy Left breast: Multi-positional exam no dominant masses or nodules of concern fibrocystic changes Left axilla: Shotty adenopathy Examination of the integument reveals some small hypo-areas of pigmentation over her chest and on her back this may be related to some vitiligo Assessment and Plan Assessment: Impression: 1. Radiographic abnormality right breast and ultrasound 2. Status post right breast biopsy incision clean and dry and well healed pathology benign this was 1819 3. Prior ALLERGIC reaction after open biopsy uncertain as to the etiology of the ALLERGY 4. Hypothyroid 5. History of anxiety/depression 6. Chest pain resolved Plan: 1. Ultrasound-guided core biopsy of the right breast 2. Follow up in 1 week after ultrasound biopsy 3. Patient to discuss with Dr. Ugarte any possible precautions prior to the ultrasound biopsy secondary to a prior ALLERGIC reaction CC: DR. De La Cruz
== END ==
LOC: WWCWWP 08:22
PROVIDERS: ATTEND Surgery
DX: Z53.9 Procedure and treatment not carried out, unspecified reason (principal)

== ENCOUNTER → 2018-08-18 | Day surgery (SDC) | payer BC ==
[2018-08-18 07:28] VITALS: RESP 16; BMI 46.9
[2018-08-18 10:07] VITALS: BP 107/79; PULSE 71; TEMP 98.1
--- NOTE | 2018-08-18 16:23 | MM ---
EXAMINATION TYPE: US biopsy breast VAD RT DATE OF EXAM: 08/18/2018 CLINICAL HISTORY: R92.8, ABNORMAL MAMMOGRAM. TECHNIQUE: Ultrasound guided core biopsy of right breast. COMPARISON: NONE FINDINGS: The procedure of ultrasound guided core biopsy was explained to the patient. Benefits, alt ernatives, and risks were discussed. An informed consent was then obtained. Timeout was performed The patient was placed in supine positioning for imaging and for the procedure. The overlying skin w as prepped and draped in usual sterile fashion. Lidocaine buffered with bicarbonate was used as anes thetic into the skin and subcutaneous tissue up to area of concern in the right breast. A joss was m lev with surgical scalpel. Under ultrasound guidance, a 12-gauge vacuum assisted biopsy gun device was used to obtain 6 core jose alejandro ples. Following this, a biopsy clip was left in lesion. On checking the sample, there was visualization of the cutting device within the breast and motor mot ion. However no sample was in the sample container. Patient was immediately reprepped and the procedu re repeated with a new device with 5 samples confirming samples in the container on the second attemp t. Given it was uncertain if the first clip would be removed by the second sampling, a second clip wa s placed at the biopsy site. The patient tolerated the procedures well without any immediate complication. The patient was kept i n the radiology department for short stay after the procedure and then discharged home in stable cond ition. Postprocedure mammogram was obtained after the initial and subsequent attempt. Images demonstrate 2 r ibbon clips at the expected biopsy site. IMPRESSION: 1. Successful ultrasound-guided core biopsy right breast. 2. Initial sampling was unsuccessful due to mechanical failure. Recommendations: 1. Recommendations are pending pathology results.
--- NOTE | 2018-08-18 16:24 | USB ---
EXAMINATION TYPE: US biopsy breast VAD RT DATE OF EXAM: 08/18/2018 CLINICAL HISTORY: R92.8, ABNORMAL MAMMOGRAM. TECHNIQUE: Ultrasound guided core biopsy of right breast. COMPARISON: NONE FINDINGS: The procedure of ultrasound guided core biopsy was explained to the patient. Benefits, alternatives, and risks were discussed. An informed consent was then obtained. Timeout was performed The patient was placed in supine positioning for imaging and for the procedure. The overlying skin was prepped and draped in usual sterile fashion. Lidocaine buffered with bicarbonate was used as anesthetic into the skin and subcutaneous tissue up to area of concern in the right breast. A joss was made with surgical scalpel. Under ultrasound guidance, a 12-gauge vacuum assisted biopsy gun device was used to obtain 6 core samples. Following this, a biopsy clip was left in lesion. On checking the sample, there was visualization of the cutting device within the breast and motor motion. However no sample was in the sample container. Patient was immediately reprepped and the procedure repeated with a new device with 5 samples confirming samples in the container on the second attempt. Given it was uncertain if the first clip would be removed by the second sampling, a second clip was placed at the biopsy site. The patient tolerated the procedures well without any immediate complication. The patient was kept in the radiology department for short stay after the procedure and then discharged home in stable condition. Postprocedure mammogram was obtained after the initial and subsequent attempt. Images demonstrate 2 ribbon clips at the expected biopsy site. IMPRESSION: 1. Successful ultrasound-guided core biopsy right breast. 2. Initial sampling was unsuccessful due to mechanical failure. Recommendations: 1. Recommendations are pending pathology results. Pathology Results: Benign RIGHT BREAST, NEEDLE CORE BIOPSIES: Fibrocystic spectrum changes. Recommendation Follow up mammogram and ultrasound of the right breast in 6 months. DAVID
== END ==
LOC: RADUSWWP 06:58
PROVIDERS: ATTEND Surgery
DX: N60.11 Diffuse cystic mastopathy of right breast (principal)
CPT/HCPCS: 88305; 77065; 19083; A4648; J2001

== ENCOUNTER → 2018-08-22 | Outpatient (CLI) | payer BC ==
--- NOTE | 2018-08-22 17:06 | P.PN ---
Subjective Progress Note Date: 08/22/18 The patient is status post an ultrasound guided core biopsy on 08-18-18. The pathology was benign. The patient has some bruisnig but no other complaints. She had a bilateral mammogram on 08-06-18, which resulted in her having a right breast ultrasound and biopsy. Objective - Constitutional General appearance: Present: average body habitus - EENT Eyes: Present: EOMI ENT: Present: hearing grossly normal - Neck Neck: Present: normal ROM - Respiratory Respiratory: bilateral: CTA - Cardiovascular Rhythm: regular Heart sounds: normal: S1, S2 - Additional findings Additional findings: biopsy site clean and dry no evidence of infection Assessment and Plan Assessment: Impression: 1. benign fibrocystic disease Plan: 1. repeat right breast mammogram and ultrasound in 6 months CC; Dr. De La Cruz, Dr. Ferrara
== END ==
LOC: WWCWWP 16:01
PROVIDERS: ATTEND Surgery
DX: Z53.9 Procedure and treatment not carried out, unspecified reason (principal)

== ENCOUNTER → 2019-01-21 | Outpatient (CLI) | payer BC ==
[2019-01-21 07:59] VITALS: BP 95/65; PULSE 69; RESP 16; TEMP 97.8; BMI 21.2
--- NOTE | 2019-01-21 08:49 | P.HPOB ---
History of Present Illness H&P Date: 01/21/19 Chief Complaint: The patient is here for her routine gynecologic exam. This is a 53-year-old with an LMP of 2007. The patient is without gynecologic complaints and denies any postmenopausal bleeding. The patient had an ASCUS Pap smear with negative high-risk HPV testing on 06/05/2016. Review of Systems She has lost about 19 pounds over the last year. She denies respiratory, cardiac, or GI problems. Past Medical History Past Medical History: Thyroid Disorder Additional Past Medical History / Comment(s): Hypothyroidism. 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 She is status post endometrial ablation in 2007. She had one twin vaginal delivery. History of Any Multi-Drug Resistant Organisms: None Reported Past Surgical History: Appendectomy, Bariatric Surgery, Breast Surgery, Cholecystectomy, Uterine Ablation Additional Past Surgical History / Comment(s): Laparoscopy for ruptured ovarian cyst. LapBand surgery in 2008. Colonoscopy 2013. 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 - Past Family History Father Family Medical History: Diabetes Mellitus, Hypertension, Myocardial Infarction ([place]) Mother Family Medical History: Thyroid Disorder Additional Family Medical History / Comment(s): mental illness, anxiety, depression. Medications and Allergies Home Medications Medication Instructions Recorded Confirmed Type ALPRAZolam [Xanax] 1 mg PO Q8HR PRN 08/14/17 01/21/19 History Cholecalciferol [Vitamin D3] 1,000 unit PO DAILY 08/14/17 01/21/19 History Levothyroxine Sodium [Synthroid] 150 mcg PO DAILY 08/14/17 01/21/19 History Multivitamins, Thera [Multivitamin 1 tab PO DAILY 08/14/17 01/21/19 History (formulary)] buPROPion HCL [Wellbutrin XL] 300 mg PO QAM 08/14/17 01/21/19 History Acetaminophen [Tylenol] 500 mg PO DAILY PRN 08/18/18 01/21/19 History Loratadine [Claritin] 5 mg PO DAILY 01/21/19 01/21/19 History Allergies Allergy/AdvReac Type Severity Reaction Status Date / Time adhesive tape AdvReac Severe Rash/Hives/ Unverified 01/21/19 07:59 Swelling/Bl istering Exam Vital Signs Temp Pulse Resp BP Pulse Ox 01/21/19 07:51 97.8 F 69 16 95/65 98 Intake and Output 01/20/19 01/21/19 01/21/19 22:59 06:59 14:59 Other: Weight 61.689 kg Height 5 feet 7 inches, weight 136 pounds, BMI 21.3. This is a well-developed well-nourished white female who is alert and oriented times 3 in no acute distress. HEENT: Within normal limits. NECK: Supple without mass or thyromegaly. CHEST AND LUNGS: Clear to auscultation. HEART: Regular rate and rhythm. BREASTS: Are without mass or discharge. AXILLARY EXAM: Negative for adenopathy. BACK: Negative for CVA tenderness. ABDOMEN: Soft, nontender, without palpable masses. PELVIC EXAM: Normal external genitalia with mild atrophy. There is a benign- appearing mole on the anterior right buttock measuring 7 x 7 mm. This has a smooth border and is his benign-appearing. Cervix and vagina appear normal with mild atrophy. There is no unusual discharge. There is no evidence of prolapse. The uterus is midposition, nongravid size and nontender. There are no palpable adnexal masses or tenderness. RECTAL EXAM: Rectovaginal exam is negative for mass or tenderness and is negative for occult blood. EXTREMITIES: Nontender. IMPRESSION: 1. 53-year-old menopausal female with normal gynecologic exam. 2. History of ASCUS Pap smear with negative high-risk HPV testing on 06/05/2016. PLAN: 1. Pap smear with high-risk HPV testing(cotest) was performed. 2. Self breast awareness was discussed with the patient. 3. Bilateral diagnostic mammogram will be due in 1 month. She states she has an order slip for this from Dr. Nima Lovell. 4. Osteoporosis prevention was discussed. I have stressed the importance of adequate calcium, vitamin D and regular exercise. Recommended amounts of calcium and vitamin D were also discussed. 5. She was advised to return in one year for her annual well woman exam.
== END ==
LOC: WWCWWP 07:48
PROVIDERS: ATTEND Obstetrics & Gynecology
DX: Z53.9 Procedure and treatment not carried out, unspecified reason (principal)

== ENCOUNTER → 2019-02-18 | Outpatient (CLI) | payer BC ==
--- NOTE | 2019-02-18 14:17 | MM ---
Reason for exam: follow-up at short interval from prior study. Last mammogram was performed 6 months ago. History: Patient is postmenopausal and had first child at age 32. Benign US biopsy breast VAD RT of the right breast, August 18, 2018. Benign MG pre op needle loc RT of the right breast, May 06, 2018. MG discontinued stereo core RT of the right breast, April 04, 2018. Took hormonal contraceptives for 1 year. Physical Findings: Nurse Summary: 1cm nodule in the right breast at 5 o'clock (nurse mj). MG 3D Diag Mammo W/Cad RT CC and MLO view(s) were taken of the right breast. Prior study comparison: August 18, 2018, right breast MG diagnostic mammo RT wo CAD. August 06, 2018, bilateral MG 3d diag mammo w/cad RUCHI. The breast tissue is heterogeneously dense. This may lower the sensitivity of mammography. No significant new findings when compared with previous films. These results were verbally communicated with the patient and result sheet given to the patient on 02/18/19. ASSESSMENT: Benign, BI-RAD 2 RECOMMENDATION: Ultrasound core biopsy of the right breast. (5 o'clock ultrasound abnormality) Called office with mammographic findings and has scheduled an appointment for the patient for 02/27/19 at 8:[address] Nolen. Biopsy scheduled for 03/17/19 at 12:20. PRELIMINARY REPORT CALLED AND FAXED TO DR. NOLEN ON 02/18/19.
--- NOTE | 2019-02-18 14:19 | USB ---
Reason for exam: additional evaluation requested from abnormal screening. History: Patient is postmenopausal and had first child at age 32. Benign US biopsy breast VAD RT of the right breast, August 18, 2018. Benign MG pre op needle loc RT of the right breast, May 06, 2018. MG discontinued stereo core RT of the right breast, April 04, 2018. Took hormonal contraceptives for 1 year. US Breast RT Right complete breast ultrasound includes all four quadrants, the retroareolar region and axilla. Finding demonstrates a 0.5 x 0.5 x 0.6cm hypoechoic lesion at 5 o'clock, suspicious, biopsy recommended and a 0.6 x 0.5 x 0.6cm hypoechoic lesion at the posterior nipple. These results were verbally communicated with the patient and result sheet given to the patient on 02/18/19. ASSESSMENT: Suspicious, BI-RAD 4 RECOMMENDATION: Ultrasound core biopsy of the right breast. (5 o'clock ultrasound abnormality) Called office with mammographic findings and has scheduled an appointment for the patient for 02/27/19 at 8:[address] Nolen. Biopsy scheduled for 03/17/19 at 12:20. PRELIMINARY REPORT CALLED AND FAXED TO DR. NOLEN ON 02/18/19.
== END | disposition home or self-care (01) ==
LOC: RADMAMWWP 07:01
PROVIDERS: ATTEND Surgery
DX: R92.8 Other abnormal and inconclusive findings on diagnostic imaging of breast (principal)
CPT/HCPCS: 77061; 77065

== ENCOUNTER → 2019-02-27 | Outpatient (CLI) | payer BC ==
[2019-02-27 09:15] VITALS: BP 117/71; PULSE 64; RESP 18; TEMP 97.6; BMI 22.1
--- NOTE | 2019-02-27 09:55 | P.PN ---
Subjective Progress Note Date: 02/27/19 Principal diagnosis: breast pain, abnormal ultrasound, multiple prior biopsies Sudha is a 52-year-old white female who presented in february 2018 with a mammographic abnormality noted in her right breast. The patient had a bilateral diagnostic mammogram performed on [id number]. In the left breast there was noted to be architectural distortion in the upper quadrant disbursing on compression and short-term follow-up was recommended. In the right breast multiple spherical calcifications were noted. Additionally there were some suspicious punctate calcifications in the right lower outer quadrant 10 cm from the nipple and biopsy was recommended. These were felt to be new since 08/29/2017. The patient herself had denied any changes in her breast. She did not feel any masses or nodules for which she was concerned. She had no nipple discharge or changes for which she was concerned. She has no history of trauma or infection of the breast. She denies any pain in her breast. The location of the lesion was superficial and close to a blood vessel, and it was therefore recommended that this be done in the operating room. This was done on 05-06-18 pathology was benign cystic disease with intraductal mineralization's throughout the specimen. 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 Following that she developed a rash in the right breast and was seen by dermatology. In follow-up to this on the patient had a bilateral mammogram performed. On this was a low-density mass at 1:00 posterior depth and low-density mass at the biopsy site likely resembling fat necrosis. The patient had an ultrasound performed on the same day and the ultrasound revealed a 1.2 x 0.8 cm irregular lesion at the posterior nipple that corresponded to the mammographic finding at 12:00 and a 0.7 x 0.7 cm hypoechoic lesion at 9:00 that appeared as a cyst. The biopsy site in the area that appeared to be fat necrosis was identified. The patient's findings however were felt to be suspicious and ultrasound-guided core biopsy was recommended. The patient underwent an ultrasound-guided core biopsy of the right breast on which revealed fibrocystic spectrum changes. The patient comes in at this time for six-month follow-up mammogram and ultrasound of the right breast. This was performed on [id number]. The right breast mammogram was considered benign BIRADS 2. The right breast ultrasound however demonstrated a 0.5 x 0.6 cm hypoechoic lesion at 5:00 which was considered suspicious, a biopsy was recommended and is 0.6 x 0.6 cm hypoechoic lesion at the posterior nipple the findings were suspicious BIRADS 4 and 5:00 ultrasound-guided core biopsy was recommended. The patient states that over the last month that she felt some pain /fullness near the 5 o'clock position of the right breast. It does not radiate anyplace. There is nothing specific that causes it to occur. The sensation is constant. The patient drinks a large coffee every day. The patient drinks pop only occasionally. The patient does not smoke and does not have exposure to secondhand smoke. Doesn't avoid chocolate. The patient does not use control pills and does not have any hormones or surgery products which she takes. She is postmenopausal. She has not changed any medications. The patient's breast pain is described as above. The patient's radiographic abnormalities have been chronicled and a new abnormalities noted in the 5 o'clock position of the right breast The patient has had multiple prior breast biopsies making her exam more difficult. Family history: 1.no history of cancer 2. father heart disease and DM Hormonal history: Menarche:10 Pregnancies: 1, (2 children), at 32, breast fed: no menopause: uterine ablation at about 38 BCP: 5 years hormones: none Past Surgical History: 1. uterine ablation 2. appy 3. ruptured ovarin cyst at the time of appy 4. gallbladder 5. lap-band (lost 105 pounds) 6. abcess right thigh 7. heart cath Past Medical History: 1. chest pain/follows with cardiology Social History: smoke: none alcohol: occasional/monthy drugs: none - Constitutional Comment: BMI 22.7 Constitutional: Denies chills, Denies fever - EENT Comment: bifocal glasses Eyes: denies blurred vision, denies pain Ears: deny: decreased hearing, tinnitus Ears, nose, mouth and throat: Denies headache, Denies sore throat - Breasts Breasts: bilateral: as per HPI - Cardiovascular Cardiovascular: Reports as per HPI, Reports chest pain - Respiratory Respiratory: Denies cough, - Gastrointestinal Gastrointestinal: Denies abdominal pain, Denies diarrhea, Denies nausea, Denies vomiting, GERD resolved with fluid from lap band - Genitourinary (Female) Genitourinary: Denies dysuria, Denies hematuria - Menstruation Menstruation: Reports postmenopausal - Musculoskeletal Comment: arthritis Musculoskeletal: Denies myalgias - Integumentary Integumentary: Denies pruritus, Denies rash - Neurological Neurological: Denies numbness, Denies weakness - Psychiatric Psychiatric: Reports anxiety, Reports depression - Endocrine Comment: hypothyroid Endocrine: Denies fatigue, Denies weight change - Hematologic/Lymphatic Comment: none - Allergic/Immunologic Allergic/Immunologic: Reports seasonal allergies Past Medical History Past Medical History: Thyroid Disorder Additional Past Medical History / Comment(s): See psychiatric history. 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 She is status post endometrial ablation in 2007. She had one twin vaginal delivery. History of Any Multi-Drug Resistant Organisms: None Reported Past Surgical History: Appendectomy, Bariatric Surgery, Cholecystectomy, Uterine Ablation Additional Past Surgical History / Comment(s): Laparoscopy for ruptured ovarian cyst. LapBand surgery in 2008. Colonoscopy at age 48. Past Psychological History: Anxiety, Depression Smoking Status: Former smoker Past Alcohol Use History: Occasional Past Drug Use History: None Reported - Past Family History Father Family Medical History: Diabetes Mellitus, Hypertension, Myocardial Infarction ([place]) Mother Family Medical History: Thyroid Disorder Additional Family Medical History / Comment(s): mental illness, anxiety, depression. Medications and Allergies Home Medications Medication Instructions Recorded Confirmed Type ALPRAZolam [Xanax] 1 mg PO Q8HR 08/14/17 03/14/18 History Aspirin [Adult Low Dose Aspirin EC] 81 mg PO DAILY 08/14/17 03/14/18 History Cholecalciferol [Vitamin D3] 1,000 unit PO DAILY 08/14/17 03/14/18 History Levothyroxine Sodium [Synthroid] 150 mcg PO DAILY 08/14/17 03/14/18 History Multivitamins, Thera [Multivitamin 1 tab PO DAILY 08/14/17 03/14/18 History (formulary)] buPROPion HCL [Wellbutrin XL] 300 mg PO DAILY 08/14/17 03/14/18 History Objective - Vital Signs Vital signs: Vital Signs Temp 97.6 F 02/27/19 09:12 Pulse 64 02/27/19 09:12 Resp 18 02/27/19 09:12 BP 117/71 02/27/19 09:12 Pulse Ox 100 02/27/19 09:12 Intake & Output 02/26/19 02/27/19 02/27/19 18:59 06:59 18:59 Weight 63.957 kg - Exam BMI 22.1 - Constitutional General appearance: Present: average body habitus - EENT Eyes: Present: EOMI ENT: Present: hearing grossly normal - Neck Neck: Present: normal ROM - Respiratory Respiratory: bilateral: CTA - Cardiovascular Rhythm: regular Heart sounds: normal: S1, S2 - Gastrointestinal Gastrointestinal Comment(s): no tenderness bowel sounds normal no organomegaly/ liver, spleen General gastrointestinal: Present: soft - Integumentary Integumentary Comment(s): well healed scar right breast Integumentary: Present: normal turgor - Musculoskeletal Musculoskeletal: Present: gait normal - Psychiatric Psychiatric: Present: A&O x's 3, appropriate affect, intact judgment & insight - Additional findings Additional findings: Breast exam: Asymmetry, right breast slightly larger than the left breast Right breast: Multi-positional exam well-healed scar from prior biopsy, fibrocystic changes, nipple areolar complex no lesions of concern no nipple discharge, firm breast tissue upper outer quadrant region does not appear to be pathologic Right axilla: No adenopathy of concern Left breast: Multi-positional exam fibrocystic changes, no dominant masses or nodules of concern, nipple discharge of concern Left axilla: Thalamus most likely representing benign adenopathy Assessment and Plan Assessment: Fashion: 1. Abnormal ultrasound right breast 2. Multiple prior right breast biopsies resulting in increased difficulty on physical exam secondary to scarring 3. Dense breast tissue 4. Fibrocystic breast changes 5. Anxiety/depression 6. Chest pain follows with cardiology 7. Hypothyroidism 8. Mastodynia, to be related to fibrocystic changes probable caffeine intake 9. Asymmetry right breast larger than the left Plan: 1. Ultrasound-guided core biopsy of new area of concern in the right breast 2. Left breast repeat mammogram in July 2019 3. Follow-up after ultrasound-guided core biopsy 4. Counseled on caffeine intake and relationship to fibrocystic breast pain CC: Dr. De La Cruz, Dr. Ferrara Appointment 35 minutes, > 50% planning, discussion.
--- NOTE | 2019-03-02 11:38 | USB ---
Reason for exam: clinical finding. History: Patient is postmenopausal and had first child at age 32. Benign US biopsy breast VAD RT of the right breast, August 18, 2018. Benign MG pre op needle loc RT of the right breast, May 06, 2018. MG discontinued stereo core RT of the right breast, April 04, 2018. Took hormonal contraceptives for 1 year. Indicated problem(s): palpable abnormality in the left breast. Physical Findings: Breast exam performed by Dr. Nolen. US Breast Axilla LT Left breast axilla ultrasound demonstrates several normal appearing nodes. No suspicious solid or cystic masses. These results were verbally communicated with the patient and result sheet given to the patient on 02/27/19. ASSESSMENT: Benign, BI-RAD 2 RECOMMENDATION: Routine screening mammogram of both breasts in 1 year. (in regards to left breast) Recommended for right biopsy remains. Manage patient on a clinical basis.
== END ==
LOC: WWCWWP 08:36
PROVIDERS: ATTEND Surgery
DX: N63.0 Unspecified lump in unspecified breast (principal)

== ENCOUNTER → 2019-03-17 | Day surgery (SDC) | payer BC ==
[2019-03-17 11:42] VITALS: RESP 16; BMI 22.1
[2019-03-17 12:34] VITALS: BP 102/71; PULSE 61; TEMP 97.6
--- NOTE | 2019-03-17 12:53 | USB ---
EXAMINATION TYPE: US biopsy breast VAD RT, MG diagnostic mammo RT wo CAD DATE OF EXAM: 03/17/2019 CLINICAL HISTORY: N63 Breast Mass. Abnormal ultrasound. Right breast lesion. TECHNIQUE: Ultrasound guided core biopsy of right breast with clip placement and follow-up diagnostic two-view mammogram. COMPARISON: Complete right breast ultrasound and mammogram February 18, 2019. FINDINGS: The procedure of ultrasound guided core biopsy was explained to the patient. Benefits, alternatives, and risks were discussed. An informed consent was then obtained. The patient was placed in supine positioning for imaging and for the procedure. Preprocedure ultrasound redemonstrates a hypoechoic to anechoic round 5 to 6 mm lesion at 5:00 position zone BC in the right breast. The overlying skin was prepped and draped in usual sterile fashion. Lidocaine was used as anesthetic into the skin and subcutaneous tissue. Lidocaine with epinephrine is used as anesthetic into the deeper tissue up to area of concern in the right breast. Under ultrasound guidance, a vacuum assisted biopsy gun device was used to obtain 2 core samples. Following this, a biopsy clip was left in site of residual lesion. Lesion shrunk in size after sampling. The patient tolerated the procedure well without any immediate complication. The patient was kept in the radiology department for short stay after the procedure and then discharged home in stable condition. Postprocedure mammogram shows successful deployment of new clip in the inferior slight medial right breast IMPRESSION: Successful, uncomplicated ultrasound guided core biopsy of area of concern in the right breast, full pathology results to follow. Low index of suspicion noted at time of procedure. Pathology Results: Benign RIGHT BREAST LESION AT 5:00 POSITION, NEEDLE CORE BIOPSIES: Focal duct ectasia with periductal fibrosis and inflammation/fat necrosis associated with fibrocystic spectrum disease including UDH. Focal intraductal mineralizations are present. Recommendation Follow up ultrasound of the right breast in 6 months. ARNOLDOD
== END ==
LOC: RADUSWWP 10:37
PROVIDERS: ATTEND Surgery
DX: N60.11 Diffuse cystic mastopathy of right breast (principal); N60.41 Mammary duct ectasia of right breast
CPT/HCPCS: 88305; 77065; 19083; A4648; J2001

== ENCOUNTER → 2019-09-23 | Outpatient (CLI) | payer BC ==
--- NOTE | 2019-09-24 08:27 | MM ---
Reason for exam: follow-up at short interval from prior study. Last mammogram was performed 6 months ago. History: Patient is postmenopausal and had first child at age 32. Benign US biopsy breast VAD RT of the right breast, March 17, 2019. Benign US biopsy breast VAD RT of the right breast, August 18, 2018. Benign MG pre op needle loc RT of the right breast, May 06, 2018. MG discontinued stereo core RT of the right breast, April 04, 2018. Took hormonal contraceptives for 1 year. Physical Findings: Nurse did not find any significant physical abnormalities on exam. MG 3D Diag Mammo W/Cad RUCHI Bilateral CC, MLO, and XCCL view(s) were taken. Prior study comparison: March 17, 2019, right breast MG diagnostic mammo RT wo CAD. February 18, 2019, right breast MG 3d diag mammo w/cad RT. August 06, 2018, bilateral MG 3d diag mammo w/cad RUCHI. August 14, 2017, bilateral MG 3d screening mammo w/cad. August 01, 2016, bilateral MG 3d screening mammo w/cad. The breast tissue is extremely dense which could obscure a lesion on mammography. Finding #1: Architectural distortion in the upper outer quadrant, posterior position of the right breast consistent with known excisional biopsy. Finding #2: There are typically benign dystrophic, round calcifications in both breasts. Previous mammotome biopsy in the right breast x 3. There is no discrete abnormality. Benign bilateral axillary lymph nodes. These results were verbally communicated with the patient and result sheet given to the patient on 09/23/19. ASSESSMENT: Benign, BI-RAD 2 RECOMMENDATION: Routine screening mammogram of both breasts in 1 year.
--- NOTE | 2019-09-24 08:28 | USB ---
Reason for exam: follow-up at short interval from prior study. History: Patient is postmenopausal and had first child at age 32. Benign US biopsy breast VAD RT of the right breast, March 17, 2019. Benign US biopsy breast VAD RT of the right breast, August 18, 2018. Benign MG pre op needle loc RT of the right breast, May 06, 2018. MG discontinued stereo core RT of the right breast, April 04, 2018. Took hormonal contraceptives for 1 year. US Breast RT Right complete breast ultrasound includes all four quadrants, the retroareolar region and axilla. Finding demonstrates no cystic or solid lesion seen. These results were verbally communicated with the patient and result sheet given to the patient on 09/23/19. ASSESSMENT: Negative, BI-RAD 1 RECOMMENDATION: Follow-up diagnostic mammogram of both breasts in 1 year.
== END | disposition home or self-care (01) ==
LOC: RADMAMWWP 07:03
PROVIDERS: ATTEND Surgery
DX: R92.8 Other abnormal and inconclusive findings on diagnostic imaging of breast (principal)
CPT/HCPCS: 77062; 77066

== ENCOUNTER → 2019-10-20 | Outpatient (CLI) | payer BC ==
[2019-10-20 13:12] VITALS: BP 122/79; PULSE 78; RESP 16; TEMP 97.9; BMI 28.1
--- NOTE | 2019-10-20 15:47 | P.BASOAP ---
Subjective Progress Note Date: 10/20/19 Principal diagnosis: Morbid obesity 54-year-old female had her band loosened last December. He was at 8 mL and had 1 mL removed. Patient describes decreased restriction. She would like a fill. Objective - Vital Signs Vital signs: Vital Signs Temp 97.9 F 10/20/19 13:09 Pulse 78 10/20/19 13:09 Resp 16 10/20/19 13:09 BP 122/79 10/20/19 13:09 Pulse Ox Intake & Output 10/19/19 10/20/19 10/20/19 18:59 06:59 18:59 Weight 81.647 kg - Exam Abdomen: Soft, nontender, nondistended Assessment/Plan (1) Morbid obesity Narrative/Plan: Patient doing well. We will add 0.5 mL for a total of 7.5 mL. The patient's lap band port was palpated. The site was aseptically prepped. The Wick needle was advanced into the port. A total of 0.5 ml of fluid was added. Pressure was held and a sterile dressing was applied. Plan: Date: 10/20/19 Initial Weight: 125.645 kg Initial BMI: 43.4 Current Weight: 81.647 kg Current BMI: 28.1 Type of Surgery: Total Volume in Band: 7.5 Previous Volume: Volume Removed: Volume Added: 0.5 Band Size:
== END | disposition home or self-care (01) ==
LOC: BARWHC3 12:58
PROVIDERS: ATTEND Surgery
DX: Z46.51 Encounter for fitting and adjustment of gastric lap band (principal); E66.01 Morbid (severe) obesity due to excess calories; Z68.28 Body mass index [BMI] 28.0-28.9, adult
CPT/HCPCS: 99212

== ENCOUNTER → 2020-05-10 | Outpatient (CLI) | payer BC ==
[2020-05-10 16:06] VITALS: BP 96/67; PULSE 87; RESP 18; TEMP 97.6
--- NOTE | 2020-05-10 17:09 | P.HPOB ---
History of Present Illness H&P Date: 05/10/20 Chief Complaint: The patient is here for her routine gynecologic exam. This is a 55-year-old with an LMP of 2008. The patient is without gynecologic complaints. Her last Pap smear cotest was on 01/25/2019 and this was negative/negative. The prior Pap smear showed ASCUS on 06/05/2016 and had a negative high-risk HPV test. Review of Systems The patient had lost about 120 pounds after her lap band procedure. Last year she had some fluid removed from the lap band and she then gained approximately 35 pounds. She has been undergoing some more adjusting with the lap band in hopes to lose about 15 pounds. She denies respiratory, cardiac, or GI problems. Past Medical History Past Medical History: Thyroid Disorder Additional Past Medical History / Comment(s): Hypothyroidism. Past LOGGER history: she has no history of STDs. She is status post endometrial ablation in 2007. She had one twin vaginal delivery. History of Any Multi-Drug Resistant Organisms: None Reported Past Surgical History: Appendectomy, Bariatric Surgery, Breast Surgery, Cholecystectomy, Uterine Ablation Additional Past Surgical History / Comment(s): Laparoscopy for ruptured ovarian cyst. LapBand surgery in 2008. Colonoscopy 2013. Rt breast [id number] Past Anesthesia/Blood Transfusion Reactions: Motion Sickness Past Psychological History: Anxiety, Bipolar, Depression Smoking Status: Former smoker Past Alcohol Use History: Occasional (About 1-2 per week) Past Drug Use History: None Reported Additional History: She has been since 1994 and works at [employer]. - Past Family History Father Family Medical History: Diabetes Mellitus, Hypertension, Myocardial Infarction ([place]) Mother Family Medical History: Thyroid Disorder Additional Family Medical History / Comment(s): mental illness, anxiety, depression. Medications and Allergies Home Medications Medication Instructions Recorded Confirmed Type ALPRAZolam [Xanax] 1 mg PO Q8HR PRN 08/14/17 05/10/20 History Cholecalciferol [Vitamin D3] 1,000 unit PO DAILY 08/14/17 05/10/20 History Levothyroxine Sodium [Synthroid] 150 mcg PO DAILY 08/14/17 05/10/20 History Multivitamins, Thera [Multivitamin 1 tab PO DAILY 08/14/17 05/10/20 History (formulary)] buPROPion HCL [Wellbutrin XL] 300 mg PO QAM 08/14/17 05/10/20 History Acetaminophen [Tylenol] 500 mg PO DAILY PRN 08/18/18 05/10/20 History Loratadine [Claritin] 5 mg PO DAILY 01/21/19 05/10/20 History Biotin 5 mg PO DAILY 02/27/19 05/10/20 History Cyanocobalamin (Vitamin B-12) 1,000 mcg PO DAILY 02/27/19 05/10/20 History [Vitamin B-12] L.acidoph,Paracasei, B.lactis 1 each PO DAILY 02/27/19 05/10/20 History [Probiotic] [place]-3 Fatty Acids/Fish Oil [Fish 1 each PO DAILY 02/27/19 05/10/20 History Oil 1,000 mg Softgel] Allergies Allergy/AdvReac Type Severity Reaction Status Date / Time adhesive tape AdvReac Severe Rash/Hives/ Verified 05/10/20 15:51 Swelling/Bl istering Exam Vital Signs Temp Pulse Resp BP Pulse Ox 05/10/20 16:00 97.6 F 87 18 96/67 99 Intake and Output 05/10/20 05/10/20 05/10/20 06:59 14:59 22:59 Other: Weight 74.843 kg Height 5 feet 5-1/2 inches, weight 165 pounds, BMI 27.0. This is a well-developed well-nourished white female who is alert and oriented times 3 in no acute distress. HEENT: Within normal limits. NECK: Supple without mass or thyromegaly. CHEST AND LUNGS: Clear to auscultation. HEART: Regular rate and rhythm. BREASTS: Are without mass or discharge. AXILLARY EXAM: Negative for adenopathy. BACK: Negative for CVA tenderness. ABDOMEN: Soft, nontender, without palpable masses. PELVIC EXAM: Normal external genitalia with minimal atrophy. Cervix and vagina appear normal with minimal atrophy. There is no unusual discharge. There is no evidence of prolapse. The uterus is midposition, nongravid size and nontender. There are no palpable adnexal masses or tenderness. RECTAL EXAM: Rectovaginal exam is negative for mass or tenderness and is negative for occult blood. EXTREMITIES: Nontender. IMPRESSION: 1. 55-year-old menopausal female with normal gynecologic exam. 2. Previous ASCUS Pap smear with negative high-risk HPV testing in 2017. The follow-up Pap smear cotest on 01/25/2019 was negative/negative. PLAN: 1. Pap smear was deferred. Pap smear cotest will be done in one year and if this is normal we will resume routine screening. 2. Self breast awareness was discussed with the patient. 3. Screening mammogram will be due in approximately 5 months. The order slip was given to the patient for this. 4. Osteoporosis prevention was discussed. I have stressed the importance of adequate calcium, vitamin D and regular exercise. Recommended amounts of calcium and vitamin D were also discussed. 5. She was advised to return in one year for her annual well woman exam.
== END | disposition home or self-care (01) ==
LOC: WWCWWP 15:15
PROVIDERS: ATTEND Obstetrics & Gynecology
DX: Z53.9 Procedure and treatment not carried out, unspecified reason (principal)

== ENCOUNTER → 2020-09-23 | Outpatient (CLI) | payer BC ==
--- NOTE | 2020-09-28 11:23 | MM ---
Reason for exam: screening (asymptomatic). Last mammogram was performed 1 year ago. History: Patient is postmenopausal and had first child at age 32. Benign US biopsy breast VAD RT of the right breast, March 17, 2019. Benign US biopsy breast VAD RT of the right breast, August 18, 2018. Benign MG pre op needle loc RT of the right breast, May 06, 2018. MG discontinued stereo core RT of the right breast, April 04, 2018. Took hormonal contraceptives for 1 year. Physical Findings: A clinical breast exam by your physician is recommended on an annual basis and results should be correlated with mammographic findings. MG 3D Screening Mammo W/Cad Bilateral CC and MLO view(s) were taken. Prior study comparison: September 23, 2019, bilateral MG 3d diag mammo w/cad RUCHI. March 17, 2019, right breast MG diagnostic mammo RT wo CAD. The breast tissue is heterogeneously dense. This may lower the sensitivity of mammography. Finding: There are indeterminate calcifications in the subareolar position of the left breast. New finding since September 23, 2019 and March 17, 2019. ASSESSMENT: Incomplete: need additional imaging evaluation, BI-RAD 0 RECOMMENDATION: Special view mammogram of the left breast. [facility] will attempt to contact patient to return for supplemental views.
== END | disposition home or self-care (01) ==
LOC: RADMAMWWP 07:04
PROVIDERS: ATTEND Obstetrics & Gynecology
DX: Z12.31 Encounter for screening mammogram for malignant neoplasm of breast (principal); Z78.0 Asymptomatic menopausal state
CPT/HCPCS: 77063; 77067

== ENCOUNTER → 2020-10-06 | Outpatient (CLI) | payer BC ==
--- NOTE | 2020-10-12 11:57 | MM ---
Reason for exam: additional evaluation requested from abnormal screening. Last mammogram was performed less than 1 month ago. History: Patient is postmenopausal and had first child at age 32. Benign US biopsy breast VAD RT of the right breast, March 17, 2019. Benign US biopsy breast VAD RT of the right breast, August 18, 2018. Benign MG pre op needle loc RT of the right breast, May 06, 2018. MG discontinued stereo core RT of the right breast, April 04, 2018. Took hormonal contraceptives for 1 year. Physical Findings: Nurse did not find any significant physical abnormalities on exam. MG 3D Work Up W/Cad LT CC with magnification, LM with magnification, and LM view(s) were taken of the left breast. Prior study comparison: September 23, 2020, bilateral MG 3d screening mammo w/cad. September 23, 2019, bilateral MG 3d diag mammo w/cad RUCHI. The breast tissue is heterogeneously dense. This may lower the sensitivity of mammography. Finding: There are intermediate concern, suspicious coarse heterogeneous, fine, segmental calcifications in the upper outer quadrant, anterior position of the left breast 4cm from the nipple. New finding since September 23, 2020 and September 23, 2019. These results were verbally communicated with the patient and result sheet given to the patient on 10/06/20. ASSESSMENT: Suspicious, BI-RAD 4 RECOMMENDATION: Stereotactic core biopsy of the left breast. (left breast calcifications) Called Dr. Ferrara's office with mammographic findings and has scheduled an appointment for the patient for 11/04/20 at 9:[address] Nolen. Biopsy scheduled for 10/27/20 at 8:00. PRELIMINARY REPORT CALLED AND FAXED TO DR. NOLEN ON 10/12/20.
== END | disposition home or self-care (01) ==
LOC: RADMAMWWP 14:26
PROVIDERS: ATTEND Obstetrics & Gynecology
DX: R92.2 Inconclusive mammogram (principal); R92.1 Mammographic calcification found on diagnostic imaging of breast
CPT/HCPCS: 77061; 77065

== ENCOUNTER → 2020-10-14 | Day surgery (SDC) | payer BC ==
[2020-10-14 07:20] VITALS: RESP 16
--- NOTE | 2020-10-14 08:55 | P.PCN ---
Date of Procedure: 10/14/20 Preoperative Diagnosis: Microcalcifications of concern left breast Postoperative Diagnosis: Same Procedure(s) Performed: Stereotactic core biopsy left breast Anesthesia: local Surgeon: Jen Nolen Pathology: other (Breast tissue) Condition: stable Disposition: same day Indications for Procedure: Microcalcifications of concern left breast Operative Findings: Radiographic specimen reveals microcalcifications of concern and specimen Description of Procedure: The patient was brought to the stereotactic core biopsy room. Risk and benefits of the procedure have been discussed with the patient. Alternatives such as watchful waiting (resection the operating room are considered but not recommended. The patient agreed to stereotactic core biopsy. A admission specialist film was obtained. The area of concern in the left breast was identified and targeted. A CC from above approach was utilized. The breast was prepped using Betadine. 25 mL of 1% lidocaine were used to anesthetize the area of concern. A 9-gauge vacuum-assisted core rotating biopsy needle was driven to the correct coordinates. A prefire film was obtained. The needle was noted to be in the correct location. The needle was fired and the posterior film was obtained. The needle was noted to be in the correct location." Biopsy specimens were obtained. Radiograph of the specimen revealed microcalcifications of concern had been sampled. A secure marked top Marker was deployed. This was noted to be in the correct location. The specimen was sent to pathology. The patient will follow-up with Dr. Herring next week.
[2020-10-14 09:01] VITALS: BP 117/76; PULSE 63; TEMP 98.5
--- NOTE | 2020-10-14 11:50 | MM ---
EXAMINATION TYPE: MG stereo VAD BX LT DATE OF EXAM: 10/14/2020 COMPARISON: 10/06/2020, 09/23/2020 CLINICAL HISTORY: Left breast calcifications TECHNIQUE: Stereotactic guided core biopsy of left breast. FINDINGS: No radiologist was present for the majority of the procedure and findings are per report. The procedure of stereotactic guided core biopsy was explained to the patient. Benefits, alternatives, and risks were discussed. An informed consent was then obtained. [facility] pathway [facility] biopsy was chosen. Shortness pathway was cranial approach. I was consulted to ensure calcifications were within the biopsy window on stereo pair. Dr. Nolen localized the calcifications and performed the remainder of the procedure. A vacuum assisted biopsy gun was used to obtain multiple core samples. For full details please see surgeon's note. The patient tolerated the procedure well without any immediate complication. The patient was kept in the radiology department for short stay after the procedure and then discharged home in stable condition. Targeted calcifications are identified in specimen mammogram. Post biopsy mammogram shows the clip to appear in satisfactory position relative to the targeted area of concern on the preprocedure images. IMPRESSION: SUCCESSFUL, UNCOMPLICATED STEREOTACTIC GUIDED CORE BIOPSY OF AREA OF CONCERN IN THE left BREAST, FULL PATHOLOGY RESULTS TO FOLLOW. Pathology Results: Benign LEFT BREAST, STEREOTACTIC CORE BIOPSY: Fibrocystic changes including fibrosis, small cysts and calcifications. Recommendation Follow up mammogram of the left breast in 6 months. DAVID
== END ==
LOC: RADMAMWWP 07:01
PROVIDERS: ATTEND Surgery
DX: N60.12 Diffuse cystic mastopathy of left breast (principal); R92.8 Other abnormal and inconclusive findings on diagnostic imaging of breast; R92.1 Mammographic calcification found on diagnostic imaging of breast; R92.0 Mammographic microcalcification found on diagnostic imaging of breast
CPT/HCPCS: 88305; 19081; A4648; J2001

== ENCOUNTER → 2020-10-27 | Outpatient (CLI) | payer BC ==
[2020-10-27 11:21] VITALS: BP 109/77; PULSE 74; RESP 18; TEMP 98.4
--- NOTE | 2020-10-27 12:11 | P.GSHP ---
History of Present Illness H&P Date: 10/27/20 Chief Complaint: sterotactic core biopsy left breast Marina is a 55 year old white female status [place] [id number]. Pathology revealed fibrocystic changes including fibrosis/small cysts and calcifications. This was felt to be benign and concordant and repeat left breast mammogram was recommended in 6 months. She had a bilateral mammogram performed on [id number]. On this x-ray there were noted to be indeterminate calcifications in the subareolar position of the left breast. Special views of the left breast were recommended. Nothing of concern was identified in the right breast. The patient in the past had undergone a right breast core biopsy, after which was an open excisional biopsy in the operating room was performed. This was benign. She did have a reaction to the tape. The reaction to the tape required being seen by a executive communications manager. She is not worried about anything in her breast at this time. Caffiene: large coffee/day nicotine: none hormones: Synthroid Chocolate: occasional Family history: maternal grandfather: liver cancer Hormonal History: menarche: 10 , breast fed: no, age at : 32 menarche: 48 BCP: 5 years Surgical History: 1. right breast biopsy in OR 2. ruptured ovarian cyst 3. appy 4. uterine ablation 5. leg lesion 6. gallbladder 7. lap band 8. left stero biopsy Medical History: none Social History: nicotine: none/ stopped in 20's alcohol: occasional drugs: none - Constitutional Constitutional: Denies chills, Denies fever - EENT Eyes: denies blurred vision, denies pain Ears: bilateral: decreased hearing, deny: tinnitus Ears, nose, mouth and throat: Denies headache, Denies sore throat - Breasts Breasts: bilateral: as per HPI - Cardiovascular Cardiovascular: Denies chest pain, Denies shortness of breath - Respiratory Respiratory: Denies cough, Denies 7 - Gastrointestinal Gastrointestinal: Denies abdominal pain, Denies diarrhea, Denies nausea, Denies vomiting - Menstruation Menstruation: Reports postmenopausal - Musculoskeletal Musculoskeletal: Denies myalgias - Integumentary Integumentary: Denies pruritus, Denies rash - Neurological Neurological: Denies numbness, Denies weakness - Psychiatric Psychiatric: Reports anxiety, Reports depression - Endocrine Endocrine: Denies fatigue, Denies weight change - Hematologic/Lymphatic Comment: none - Allergic/Immunologic Allergic/Immunologic: Reports as per HPI, Reports seasonal allergies Past Medical History Past Medical History: Thyroid Disorder Additional Past Medical History / Comment(s): Hypothyroidism. 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 She is status post endometrial ablation in 2007. She had one twin vaginal delivery. History of Any Multi-Drug Resistant Organisms: None Reported Past Surgical History: Appendectomy, Bariatric Surgery, Breast Surgery, Cholecystectomy, Uterine Ablation Additional Past Surgical History / Comment(s): Laparoscopy for ruptured ovarian cyst. LapBand surgery in 2008. Colonoscopy 2013. Rt breast [id number] Past Anesthesia/Blood Transfusion Reactions: Motion Sickness Past Psychological History: Anxiety, Bipolar, Depression Smoking Status: Former smoker Past Alcohol Use History: Occasional Past Drug Use History: None Reported - Past Family History Father Family Medical History: Diabetes Mellitus, Hypertension, Myocardial Infarction ([place]) Mother Family Medical History: Thyroid Disorder Additional Family Medical History / Comment(s): mental illness, anxiety, de pression. Medications and Allergies Home Medications Medication Instructions Recorded Confirmed Type ALPRAZolam [Xanax] 1 mg PO Q8HR PRN 08/14/17 10/27/20 History Cholecalciferol [Vitamin D3] 1,000 unit PO DAILY 08/14/17 10/27/20 History Levothyroxine Sodium [Synthroid] 150 mcg PO DAILY 08/14/17 10/27/20 History Multivitamins, Thera [Multivitamin 1 tab PO DAILY 08/14/17 10/27/20 History (formulary)] buPROPion HCL [Wellbutrin XL] 300 mg PO QAM 08/14/17 10/27/20 History Acetaminophen [Tylenol] 500 mg PO DAILY PRN 08/18/18 10/27/20 History Loratadine [Claritin] 5 mg PO DAILY 01/21/19 10/27/20 History Biotin 5 mg PO DAILY 02/27/19 10/27/20 History Cyanocobalamin (Vitamin B-12) 1,000 mcg PO DAILY 02/27/19 10/27/20 History [Vitamin B-12] L.acidoph,Paracasei, B.lactis 1 each PO DAILY 02/27/19 10/27/20 History [Probiotic] [place]-3 Fatty Acids/Fish Oil [Fish 1 each PO DAILY 02/27/19 10/27/20 History Oil 1,000 mg Softgel] Allergies Allergy/AdvReac Type Severity Reaction Status Date / Time adhesive tape AdvReac Severe Rash/Hives/ Verified 10/14/20 07:13 Swelling/Bl istering Surgical - Exam Vital Signs Temp Pulse Resp BP Pulse Ox 98.4 F 74 18 109/77 98 10/27/20 11:19 10/27/20 11:19 10/27/20 11:19 10/27/20 11:19 10/27/20 11:19 BMI 24.6 - General no distress - Eyes normal ocular movement - ENT no hearing loss - Neck no masses, trachea midline - Respiratory normal respiratory effort, clear to auscultation - Cardiovascular Rhythm: regular Heart Sounds: normal: S1, S2 - Abdomen Abdomen: soft, non tender, no guarding, no rigid, no rebound - Integumentary mild echymosis left breast at biopsy site - Neurologic no disoriented, no combative - Musculoskeletal normal gait - Psychiatric oriented to time, oriented to person, oriented to place, speech is normal, memory intact breast exam: BRA: 38F inspection: Bilateral grade 3 ptosis, right breast slightly larger than left breast Palpation: Right breast: Multi-positional exam fibrocystic changes, no dominant masses or nodules of concern Right axilla: No adenopathy of concern Left breast: Multiple positional exam mild ecchymosis from prior biopsy no dominant masses or nodules of concern Left axilla: No adenopathy of concern Assessment and Plan Assessment: Impression: 1. Patient status post left breast sterotactic core biopsy performed on 10-14-20/benign concordant 2. Fibrocystic breast changes Plan: 1. Repeat left breast mammogram in 6 months with position exam at that time 2. Bilateral mammogram August 2021 Cc: Isabella Miller
== END ==
LOC: WWCWWP 11:02
PROVIDERS: ATTEND Surgery
DX: N60.12 Diffuse cystic mastopathy of left breast (principal); F31.9 Bipolar disorder, unspecified; F41.9 Anxiety disorder, unspecified; E03.9 Hypothyroidism, unspecified; Z79.890 Hormone replacement therapy; Z87.891 Personal history of nicotine dependence; Z79.899 Other long term (current) drug therapy; Z91.048 Other nonmedicinal substance allergy status

== ENCOUNTER → 2020-12-12 | Outpatient (CLI) | payer BC ==
--- NOTE | 2020-12-12 10:17 | XR ---
EXAMINATION TYPE: XR foot complete RT DATE OF EXAM: 12/12/2020 CLINICAL HISTORY: pain TECHNIQUE: Frontal, lateral and oblique images of the right foot are obtained. COMPARISON: None. FINDINGS: There is no acute fracture/dislocation evident. Bony spurring of the midfoot greatest dors ally at least and clinical concern. The overlying soft tissue appears unremarkable. IMPRESSION: There is no acute fracture or dislocation. ICD 10 NO FRACTURE, INITIAL EVALUATION
== END | disposition home or self-care (01) ==
LOC: RADXRMAIN 09:06
PROVIDERS: ATTEND Nurse Practitioner Adult Health
DX: M79.671 Pain in right foot (principal)

== ENCOUNTER → 2021-04-17 | Outpatient (CLI) | payer BC ==
--- NOTE | 2021-04-17 14:03 | MM ---
Reason for exam: follow-up at short interval from prior study. Last mammogram was performed 6 months ago. History: Patient is postmenopausal and had first child at age 32. Benign MG stereo VAD BX LT of the left breast, October 14, 2020. Benign US biopsy breast VAD RT of the right breast, March 17, 2019. Benign US biopsy breast VAD RT of the right breast, August 18, 2018. Benign MG pre op needle loc RT of the right breast, May 06, 2018. MG discontinued stereo core RT of the right breast, April 04, 2018. Took hormonal contraceptives for 1 year. Physical Findings: Nurse did not find any significant physical abnormalities on exam. MG 3D Diag Mammo W/Cad LT CC and MLO view(s) were taken of the left breast. Prior study comparison: October 06, 2020, left breast MG 3d work up w/cad LT. September 23, 2020, bilateral MG 3d screening mammo w/cad. The breast tissue is extremely dense which could obscure a lesion on mammography. There are benign appearing round calcifications in the left breast. Previous mammotome biopsy in the left breast. There is no discrete abnormality. These results were verbally communicated with the patient and result sheet given to the patient on 04/17/21. ASSESSMENT: Benign, BI-RAD 2 RECOMMENDATION: Return to routine screening mammogram schedule for both breasts. Back on schedule.
== END | disposition home or self-care (01) ==
LOC: RADMAMWWP 13:06
PROVIDERS: ATTEND Surgery
DX: R92.8 Other abnormal and inconclusive findings on diagnostic imaging of breast (principal); R92.1 Mammographic calcification found on diagnostic imaging of breast; Z78.0 Asymptomatic menopausal state
CPT/HCPCS: 77061; 77065

== ENCOUNTER → 2021-09-26 | Outpatient (CLI) | payer BC ==
--- NOTE | 2021-10-03 07:50 | MM ---
Reason for Exam: Hx of benign breast biopsy. Last screening mammogram was performed 12 month(s) ago. Patient History: Menarche at age 10. First Full-Term at age 32. Late child-bearing (after 30). Postmenopausal. Patient used Hormonal Contraceptives for 1 year. 10/14/2020, Benign Core Biopsy on the left side. 03/17/2019, Benign Core Biopsy on the right side. 08/18/2018, Benign Core Biopsy on the right side. 05/06/2018, Benign Core Biopsy on the right side. 04/04/2018, MG discontinued stereo core RT on the right side. Risk Values: Debbi 5 year model risk: 2.8%. NCI Lifetime model risk: 15.3%. Prior Study Comparison: 02/18/2019 Right Diagnostic Mammogram, [facility]. 02/18/2019 Right Diagnostic Ultrasound, [facility]. 02/27/2019 Left Diagnostic Ultrasound, [facility]. 03/17/2019 Right Diagnostic Mammogram, [facility]. 09/23/2019 Bilateral Diagnostic Mammogram, [facility]. 09/23/2020 Bilateral Screening Mammogram, [facility]. 10/06/2020 Left Diagnostic Mammogram, [facility]. 04/17/2021 Left Diagnostic Mammogram, [facility]. Tissue Density: The breast tissue is heterogeneously dense. This may lower the sensitivity of mammography. Findings: Analyzed By CAD. Numerous benign bilateral cyst calcifications are redemonstrated. Post excisional changes within the right breast. 3 microclips in the right breast from previous biopsies. One microclip in the left breast for more recent biopsy of the anterior microcalcifications. No progressive microcalcifications are seen. No significant change from prior exams. Overall Assessment: Benign, BI-RAD 2 Management: Screening Mammogram of both breasts in 1 year. A clinical breast exam by your physician is recommended on an annual basis and results should be correlated with mammographic findings. Patient should continue monthly self breast exams. This exam should not preclude additional follow-up of suspicious palpable abnormalities. Results were given to the patient verbally at the time of exam. Electronically signed and approved by: Marily Hall M.D. Radiologist
== END | disposition home or self-care (01) ==
LOC: RADMAMWWP 08:22
PROVIDERS: ATTEND Surgery
DX: R92.1 Mammographic calcification found on diagnostic imaging of breast (principal); Z78.0 Asymptomatic menopausal state
CPT/HCPCS: 77062; 77066

== ENCOUNTER → 2021-09-26 | Outpatient (CLI) | payer BC ==
[2021-09-26 09:43] VITALS: BP 120/68; PULSE 66; RESP 16; TEMP 97.9
--- NOTE | 2021-09-26 10:22 | P.HPOB ---
History of Present Illness H&P Date: 09/26/21 Chief Complaint: The patient is here for her routine gynecologic exam and ma mmogram. This is a 56-year-old 002 with an LMP of 2007. The patient is without gynecologic complaints and denies any postmenopausal bleeding. She had an abnormal Pap smear in 2017 which showed ASCUS with negative high-risk HPV testing. Her last Pap smear on 01/21/2019 was negative with negative high-risk HPV testing. Review of Systems The patient has lost 10 pounds over the last year. Weight loss has been intentional. She denies respiratory, cardiac, or G.I. problems. Past Medical History Past Medical History: Thyroid Disorder Additional Past Medical History / Comment(s): Hypothyroidism. 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 She is status post endometrial ablation in 2007. She had one twin vaginal delivery. History of Any Multi-Drug Resistant Organisms: None Reported Past Surgical History: Appendectomy, Bariatric Surgery, Breast Surgery, Cholecystectomy, Uterine Ablation Additional Past Surgical History / Comment(s): Laparoscopy for ruptured ovarian cyst. LapBand surgery in 2008. Colonoscopy 2013(next after 10yr). Rt breast [id number] Past Anesthesia/Blood Transfusion Reactions: Motion Sickness Past Psychological History: Anxiety, Bipolar, Depression Smoking Status: Former smoker Past Alcohol Use History: Occasional Past Drug Use History: None Reported - Past Family History Father Family Medical History: Diabetes Mellitus, Hypertension, Myocardial Infarction ([place]) Mother Family Medical History: Thyroid Disorder Additional Family Medical History / Comment(s): mental illness, anxiety, depression. Medications and Allergies Home Medications Medication Instructions Recorded Confirmed Type ALPRAZolam [Xanax] 1 mg PO Q8HR PRN 08/14/17 09/26/21 History Cholecalciferol [Vitamin D3] 1,000 unit PO DAILY 08/14/17 09/26/21 History Levothyroxine Sodium [Synthroid] 150 mcg PO DAILY 08/14/17 09/26/21 History Multivitamins, Thera [Multivitamin 1 tab PO DAILY 08/14/17 09/26/21 History (formulary)] buPROPion HCL [Wellbutrin XL] 300 mg PO QAM 08/14/17 09/26/21 History Acetaminophen [Tylenol] 500 mg PO DAILY PRN 08/18/18 09/26/21 History Loratadine [Claritin] 5 mg PO DAILY 01/21/19 09/26/21 History Biotin 5 mg PO DAILY 02/27/19 09/26/21 History Cyanocobalamin (Vitamin B-12) 1,000 mcg PO DAILY 02/27/19 09/26/21 History [Vitamin B-12] L.acidoph,Paracasei, B.lactis 1 each PO DAILY 02/27/19 09/26/21 History [Probiotic] [place]-3 Fatty Acids/Fish Oil [Fish 1 each PO DAILY 02/27/19 09/26/21 History Oil 1,000 mg Softgel] Allergies Allergy/AdvReac Type Severity Reaction Status Date / Time adhesive tape AdvReac Severe Rash/Hives/ Verified 10/14/20 07:13 Swelling/Bl istering Exam Vital Signs Temp Pulse Resp BP Pulse Ox 09/26/21 09:27 97.9 F 66 16 120/68 97 Intake and Output 09/25/21 09/26/21 09/26/21 22:59 06:59 14:59 Other: Weight 70.307 kg Height 5 feet 6 inches, weight 155 pounds, BMI 25.0. This is a well-developed well-nourished white female who is alert and oriented times 3 in no acute distress. HEENT: Within normal limits. NECK: Supple without mass or thyromegaly. CHEST AND LUNGS: Clear to auscultation. HEART: Regular rate and rhythm. BREASTS: Are without mass or discharge. AXILLARY EXAM: Negative for adenopathy. BACK: Negative for CVA tenderness. ABDOMEN: Soft, nontender, without palpable masses. PELVIC EXAM: Normal external genitalia with mild atrophy. Cervix and vagina appear normal with mild atrophy. There is no unusual discharge. There is no evidence of prolapse. The uterus is midposition, nongravid size and nontender. There are no palpable adnexal masses or tenderness. RECTAL EXAM: Rectovaginal exam is negative for mass or tenderness and is negative for occult blood. EXTREMITIES: Nontender. IMPRESSION: 1. 56-year-old menopausal female with normal gynecologic exam. PLAN: 1. Pap smear cotest was performed. If this is negative, we will resume routine screening. 2. Self breast awareness was discussed with the patient. We have also discussed symptoms associated with inflammatory breast cancer. 3. Diagnostic mammogram was done today. 4. Osteoporosis prevention was discussed. I have stressed the importance of adequate calcium, vitamin D and regular exercise. Recommended amounts of calcium and vitamin D were also discussed. 5. She has completed her Covid vaccination series and did receive a booster. 6. She was advised to return in one year for her annual well woman exam.
== END ==
LOC: WWCWWP 08:24
PROVIDERS: ATTEND Obstetrics & Gynecology
DX: Z01.419 Encounter for gynecological examination (general) (routine) without abnormal findings (principal); E03.9 Hypothyroidism, unspecified; F41.9 Anxiety disorder, unspecified; F31.9 Bipolar disorder, unspecified; Z87.891 Personal history of nicotine dependence; Z79.890 Hormone replacement therapy; Z79.899 Other long term (current) drug therapy; Z91.048 Other nonmedicinal substance allergy status

== ENCOUNTER → 2021-10-05 | Outpatient (CLI) | payer BC ==
--- NOTE | 2021-10-05 12:24 | P.PN ---
Subjective Progress Note Date: 10/05/21 Principal diagnosis: fibrocystic breast changes Marina is a 56 year old white female status [place] [address]. Pathology revealed fibrocystic changes including fibrosis/small cysts and calcifications. This was felt to be benign and conco rdant and repeat left breast mammogram was recommended in 6 months. [place] [address]. On this x-ray there were noted to be indeterminate calcifications in the subareolar position of the left breast. Special views of the left breast were recommended. Nothing of concern was identified in the right breast. The patient in the past had undergone a right breast core biopsy, after which was an open excisional biopsy in the operating room was performed. This was benign. She did have a reaction to the tape. The reaction to the tape required being seen by a construction skills teacher. She is not worried about anything in her breast at this time. She underwent a bilaterl mammogram on 09-26-21 which was benign BIRAD 2. Caffiene: large coffee/day nicotine: none hormones: Synthroid Chocolate: occasional Family history: maternal grandfather: liver cancer Hormonal History: menarche: 10 , breast fed: no, age at : 32 menarche: 48 BCP: 5 years Surgical History: 1. right breast biopsy in OR 2. ruptured ovarian cyst 3. appy 4. uterine ablation 5. leg lesion 6. gallbladder 7. lap band 8. left stero biopsy Medical History: none Social History: nicotine: none/ stopped in 20's alcohol: occasional drugs: none - Constitutional Constitutional: Denies chills, Denies fever - EENT Eyes: denies blurred vision, denies pain Ears: bilateral: decreased hearing, deny: tinnitus Ears, nose, mouth and throat: Denies headache, Denies sore throat - Breasts Breasts: bilateral: as per HPI - Cardiovascular Cardiovascular: Denies chest pain, Denies shortness of breath - Respiratory Respiratory: Denies cough - Gastrointestinal Gastrointestinal: Denies abdominal pain, Denies diarrhea, Denies nausea, Denies vomiting - Menstruation Menstruation: Reports postmenopausal - Musculoskeletal Musculoskeletal: Denies myalgias - Integumentary Integumentary: Denies pruritus, Denies rash - Neurological Neurological: Denies numbness, Denies weakness - Psychiatric Psychiatric: Reports anxiety, Reports depression - Endocrine Endocrine: Denies fatigue, Denies weight change - Hematologic/Lymphatic Comment: none - Allergic/Immunologic Allergic/Immunologic: Reports as per HPI, Reports seasonal allergies Objective - Constitutional General appearance: Present: cooperative - EENT Eyes: Present: EOMI ENT: Present: hearing grossly normal - Neck Neck: Present: normal ROM - Respiratory Respiratory: bilateral: CTA - Cardiovascular Rhythm: regular Heart sounds: normal: S1, S2 - Gastrointestinal General gastrointestinal: Present: soft - Integumentary Integumentary: Present: normal turgor - Musculoskeletal Musculoskeletal: Present: gait normal - Psychiatric Psychiatric: Present: A&O x's 3, appropriate affect, intact judgment & insight - Additional findings Additional findings: Breast Exam: BRA: 38F inspection: bilateral grade 3 ptosis, right breast is larger than left breast palpation: Right breast: Multi-positional exam fibrocystic changes no dominant masses or nodules of concern Right axilla: No adenopathy of concern Left breast: Multiple positional exam fibrocystic changes no dominant masses or nodules of concern Left axilla: No adenopathy of concern Assessment and Plan Assessment: Impression: Bilateral fibrocystic breast changes Bilateral mammogram performed on 530 122 benign BIRADS 2 Plan: Bilateral mammogram in 1 year with physician exam at that time CC: Dr. Goncalves
[2021-10-05 13:00] VITALS: BP 109/67; PULSE 68; RESP 16; TEMP 98.2
== END ==
LOC: WWCWWP 11:38
PROVIDERS: ATTEND Surgery
DX: N60.11 Diffuse cystic mastopathy of right breast (principal); N60.12 Diffuse cystic mastopathy of left breast; Z87.891 Personal history of nicotine dependence; Z91.048 Other nonmedicinal substance allergy status

== ENCOUNTER → 2022-10-02 | Outpatient (CLI) | payer BC ==
[2022-10-02 07:44] VITALS: BP 100/66; PULSE 51; RESP 16; TEMP 97.1
--- NOTE | 2022-10-02 08:21 | P.HPOB ---
History of Present Illness H&P Date: 10/02/22 Chief Complaint: The patient is here for her routine gynecologic exam and ma mmogram. This is a 57-year-old with an LMP of 2007. The patient is without gynecologic complaints and denies any postmenopausal bleeding. Review of Systems The patient has gained 4 pounds over the last year. She denies respiratory, cardiac, or G.I. problems. Past Medical History Past Medical History: Thyroid Disorder Additional Past Medical History / Comment(s): Hypothyroidism. 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 She is status post endometrial ablation in 2007. She had one twin vaginal delivery. History of Any Multi-Drug Resistant Organisms: None Reported Past Surgical History: Appendectomy, Bariatric Surgery, Breast Surgery, Cholecystectomy, Uterine Ablation Additional Past Surgical History / Comment(s): Laparoscopy for ruptured ovarian cyst. LapBand surgery in 2008. Colonoscopy 2013(next after 10yr). Rt breast [id number] Past Anesthesia/Blood Transfusion Reactions: Motion Sickness Past Psychological History: Anxiety, Bipolar, Depression Smoking Status: Former smoker Past Alcohol Use History: Occasional (2-4 per month.) Past Drug Use History: None Reported Additional History: She has been since 1994. 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 - Past Family History Father Family Medical History: Diabetes Mellitus, Hypertension, Myocardial Infarction ([place]) Mother Family Medical History: Thyroid Disorder Additional Family Medical History / Comment(s): mental illness, anxiety, depression. Medications and Allergies Home Medications Medication Instructions Recorded Confirmed Type ALPRAZolam [Xanax] 1 mg PO Q8HR PRN 08/14/17 10/02/22 History Cholecalciferol [Vitamin D3] 1,000 unit PO DAILY 08/14/17 10/02/22 History Levothyroxine Sodium [Synthroid] 150 mcg PO DAILY 08/14/17 10/02/22 History Multivitamins, Thera [Multivitamin 1 tab PO DAILY 08/14/17 10/02/22 History (formulary)] buPROPion HCL [Wellbutrin XL] 300 mg PO QAM 08/14/17 10/02/22 History Acetaminophen [Tylenol] 500 mg PO DAILY PRN 08/18/18 10/02/22 History Loratadine [Claritin] 5 mg PO DAILY 01/21/19 10/02/22 History Biotin 5 mg PO DAILY 02/27/19 10/02/22 History Cyanocobalamin (Vitamin B-12) 1,000 mcg PO DAILY 02/27/19 10/02/22 History [Vitamin B-12] L.acidoph,Paracasei, B.lactis 1 each PO DAILY 02/27/19 10/02/22 History [Probiotic] Novice-3 Fatty Acids/Fish Oil [Fish 1 each PO DAILY 02/27/19 10/02/22 History Oil 1,000 mg Softgel] Allergies Allergy/AdvReac Type Severity Reaction Status Date / Time adhesive tape AdvReac Severe Rash/Hives/ Verified 10/02/22 07:40 Swelling/Bl istering Exam Vital Signs Temp Pulse Resp BP Pulse Ox 10/02/22 07:41 97.1 F L 51 L 16 100/66 96 Intake and Output 10/01/22 10/02/22 10/02/22 22:59 06:59 14:59 Other: Weight 72.121 kg Height 5 feet 5 inches, weight 159 pounds, BMI 26.5. This is a well-developed well-nourished white female who is alert and oriented times 3 in no acute distress. HEENT: Within normal limits. NECK: Supple without mass or thyromegaly. CHEST AND LUNGS: Clear to auscultation. HEART: Regular rate and rhythm. BREASTS: Are without mass or discharge. AXILLARY EXAM: Negative for adenopathy. BACK: Negative for CVA tenderness. ABDOMEN: Soft, nontender, without palpable masses. PELVIC EXAM: Normal external genitalia with mild atrophy. Cervix and vagina appear normal with mild atrophy. There is no unusual discharge. There is no evidence of prolapse. The uterus is midposition, nongravid size and nontender. There are no palpable adnexal masses or tenderness. RECTAL EXAM: Rectovaginal exam is negative for mass or tenderness and is negative for occult blood. EXTREMITIES: Nontender. IMPRESSION: 1. 57-year-old menopausal female with normal gynecologic exam. PLAN: 1. Pap smear was deferred since she had a negative Pap smear cotest on 09/26/2021. 2. Self breast awareness was discussed with the patient. We have also discussed symptoms associated with inflammatory breast cancer. 3. Screening mammogram will be done today. 4. Osteoporosis prevention was discussed. I have stressed the importance of adequate calcium, vitamin D and regular exercise. Recommended amounts of calcium and vitamin D were also discussed. We will plan on doing a bone density test in 1 year at the age of 58. 5. She was advised to return in one year for her annual well woman exam.
--- NOTE | 2022-10-03 12:15 | MM ---
Reason for Exam: Screening (asymptomatic). Last mammogram was performed 1 year(s) and 1 month(s) ago. Patient History: Menarche at age 10. First Full-Term at age 32. Late child-bearing (after 30). Postmenopausal. Patient used Hormonal Contraceptives for 1 year. 10/14/2020, Benign Core Biopsy on the left side. 03/17/2019, Benign Core Biopsy on the right side. 08/18/2018, Benign Core Biopsy on the right side. 05/06/2018, Benign Core Biopsy on the right side. 04/04/2018, MG discontinued stereo core RT on the right side. Risk Values: Debbi 5 year model risk: 2.9%. NCI Lifetime model risk: 14.9%. Prior Study Comparison: 10/06/2020 Left Diagnostic Mammogram, [facility]. 04/17/2021 Left Diagnostic Mammogram, [facility]. 09/26/2021 Bilateral MG 3D diag mammo w/cad RUCHI, [facility]. Tissue Density: The breast tissue is extremely dense which could obscure a lesion on mammography. Findings: Analyzed By CAD. There are surgical clips throughout the right breast redemonstrated. There are 2 biopsy clips anteriorly in the right breast redemonstrated. Third biopsy clip medially in the right breast is redemonstrated. There are scattered small benign-appearing round and dystrophic calcifications bilaterally redemonstrated. Benign-appearing bilateral axillary lymph nodes are redemonstrated. There is no suspicious group of microcalcifications or new suspicious mass in either breast. Overall Assessment: Benign, BI-RAD 2 Management: Screening Mammogram of both breasts in 1 year. Some advise bilateral breast ultrasound surveillance in patients with background extremely dense tissue. Patient should continue monthly self-breast exams. A clinical breast exam by your physician is recommended on an annual basis. This exam should not preclude additional follow-up of suspicious palpable abnormalities. Note on Debbi scores and lifetime risk: 1. A Debbi score greater than 3% is considered moderate risk. If this is the case, consider specialist referral to assess eligibility for a risk reducing agent. 2. If overall lifetime risk for the development of breast cancer is 20% or higher, the patient may qualify for future screening with alternating mammogram and breast MRI. Electronically signed and approved by: Blake Jaquez M.D.
== END ==
LOC: WWCWWP 07:33
PROVIDERS: ATTEND Obstetrics & Gynecology
DX: Z12.31 Encounter for screening mammogram for malignant neoplasm of breast (principal); Z78.0 Asymptomatic menopausal state; E03.9 Hypothyroidism, unspecified; Z01.419 Encounter for gynecological examination (general) (routine) without abnormal findings; Z98.890 Other specified postprocedural states; Z91.048 Other nonmedicinal substance allergy status; Z87.891 Personal history of nicotine dependence; Z79.891 Long term (current) use of opiate analgesic; R59.0 Localized enlarged lymph nodes; R92.1 Mammographic calcification found on diagnostic imaging of breast; Z01.411 Encounter for gynecological examination (general) (routine) with abnormal findings
CPT/HCPCS: 77063; 77067

== ENCOUNTER 2023-08-06 07:58 | Day surgery (SDC) | payer BC ==
[2023-08-06 08:25] VITALS: RESP 16; TEMP 97.2
[2023-08-06] MEDS: LACTATED RINGERS 1,000 ML IV SCH (08:27)
[2023-08-06] MEDS ORDERED: PROPOFOL 10 MG/ML 20 ML VIAL IV ONE (09:24)
--- NOTE | 2023-08-06 09:45 | P.PCN ---
Date of Procedure: 08/06/23 Procedure(s) Performed: BRIEF HISTORY: Patient is a 58-year-old pleasant White female scheduled for an elective colonoscopy as a part of Screening for colon cancer. PROCEDURE PERFORMED: Colonoscopy With snare polypectomy. PREOPERATIVE DIAGNOSIS: Screening for colon cancer. IV sedation per Anesthesia. PROCEDURE: After informed consent was obtained, the patient, was brought into the endoscopy unit. IV sedation was administered by Anesthesia under continuous monitoring. Digital rectal examination was normal. Initially the Olympus CF-160 flexible video colonoscope was then inserted in the rectum, gradually advanced into the cecum without any difficulty. Careful examination was performed as the scope was gradually being withdrawn. Ileocecal valve and the appendiceal orifice were visualized and appeared normal. Prep was excellent. Mucosa of the cecum, ascending colon appeared normal.In the hepatic flexure there was a 5 mm flat polyp removed by cold snare polypectomy. Rest of thetransverse colon, descending colon, sigmoid colon, and rectum appeared normal. Retroflexion was performed in the rectum and no lesions were seen. The patient tolerated the procedure well. IMPRESSION: 5 mm flat hepatic flexure polyp status post cold snare polypectomy Rest of the colon appeared normal RECOMMENDATIONS: Findings of this examination were discussed with the patient As well as his family.She was advised to follow with the biopsy results. If the biopsy revealed adenoma she can have a repeat colonoscopy in 5 years.
[2023-08-06 10:28] VITALS: BP 112/79; PULSE 90
== END 2023-08-06 10:33 | disposition home or self-care (01) ==
LOC: ORWHC2ENDO 07:58
PROVIDERS: ATTEND Internal Medicine Gastroenterology
DX: Z12.11 Encounter for screening for malignant neoplasm of colon (principal); D12.3 Benign neoplasm of transverse colon; E03.9 Hypothyroidism, unspecified; F41.9 Anxiety disorder, unspecified; F32.A Depression, unspecified; A15.9 Respiratory tuberculosis unspecified; Z79.890 Hormone replacement therapy; Z90.49 Acquired absence of other specified parts of digestive tract; Z98.890 Other specified postprocedural states; Z79.899 Other long term (current) drug therapy
CPT/HCPCS: 88305; 45385; J2704

== ENCOUNTER → 2023-10-08 | Outpatient (CLI) | payer BC ==
[2023-10-08 08:11] VITALS: BP 109/76; PULSE 69; RESP 16; TEMP 98
--- NOTE | 2023-10-08 08:33 | P.HPOB ---
History of Present Illness H&P Date: 10/08/23 Chief Complaint: The patient is here for her routine gynecologic exam and ma mmogram. This is a 66-year-old -0-0-2 with an LMP of 2007. The patient is without gynecologic complaints. Review of Systems The patient has gained 5 pounds over the last year. She denies respiratory, cardiac, or G.I. problems. Past Medical History Past Medical History: Osteoarthritis (OA), Pulmonary Embolus (PE), Thyroid D isorder Additional Past Medical History / Comment(s): Hypothyroidism. hx. PE after couple close surgeries & a hospitalization 20 yrs. ago. 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 History of Any Multi-Drug Resistant Organisms: None Reported Past Surgical History: Appendectomy, Bariatric Surgery, Breast Surgery, Tahira cystectomy, Uterine Ablation Additional Past Surgical History / Comment(s): Laparoscopy for ruptured ovarian cyst. LapBand surgery in 2008. Colonoscopy 2023(next after 5yr). marissa breast excisional-benign Past Anesthesia/Blood Transfusion Reactions: No Reported Reaction, Motion Sickness Past Psychological History: Anxiety, Bipolar, Depression Smoking Status: Former smoker Past Alcohol Use History: Occasional (About 1 drink per month.) Additional Past Alcohol Use History / Comment(s): quit smoking in her 20s, never smoked daily Past Drug Use History: None Reported Additional History: She has been since 1994. 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 - Past Family History Father Family Medical History: Diabetes Mellitus, Hypertension, Myocardial Infarction ([place]) Mother Family Medical History: Thyroid Disorder Additional Family Medical History / Comment(s): mental illness, anxiety, depression. Medications and Allergies Home Medications Medication Instructions Recorded Confirmed Type ALPRAZolam [Xanax] 0.5 mg PO Q8HR PRN 08/14/17 10/08/23 History Cholecalciferol [Vitamin D3] 1,000 unit PO DAILY 08/14/17 10/08/23 History Levothyroxine Sodium [Synthroid] 150 mcg PO DAILY 08/14/17 10/08/23 History Multivitamins, Thera [Multivitamin 1 tab PO DAILY 08/14/17 10/08/23 History (formulary)] buPROPion HCL [Wellbutrin XL] 300 mg PO QAM 08/14/17 10/08/23 History Loratadine [Claritin] 5 mg PO DAILY 01/21/19 10/08/23 History Biotin 5 mg PO DAILY 02/27/19 10/08/23 History Cyanocobalamin (Vitamin B-12) 1,000 mcg PO DAILY 02/27/19 10/08/23 History [Vitamin B-12] L.acidoph,Paracasei, B.lactis 1 each PO DAILY 02/27/19 10/08/23 History [Probiotic] Lincoln-3 Fatty Acids/Fish Oil [Fish 1 each PO DAILY 02/27/19 10/08/23 History Oil 1,000 mg Softgel] Ascorbic Acid [Vitamin C] 1,000 mg PO DAILY 08/02/23 10/08/23 History Calcium Carbonate [Calcium] 600 mg PO DAILY 08/02/23 10/08/23 History Zinc Gluconate [Zinc] 50 mg PO DAILY 08/02/23 10/08/23 History Allergies Allergy/AdvReac Type Severity Reaction Status Date / Time adhesive tape AdvReac Severe Rash/Hives/ Verified 10/08/23 08:08 Swelling/Bl istering Exam Vital Signs Temp Pulse Resp BP Pulse Ox 10/08/23 08:09 98 F 69 16 109/76 98 Intake and Output 10/07/23 10/08/23 10/08/23 22:59 06:59 14:59 Other: Weight 74.389 kg Height 5 feet 5 inches, weight 164 pounds, BMI 27.3. This is a well-developed well-nourished white female who is alert and oriented times 3 in no acute distress. HEENT: Within normal limits. NECK: Supple without mass or thyromegaly. CHEST AND LUNGS: Clear to auscultation. HEART: Regular rate and rhythm. BREASTS: Are without mass or discharge. AXILLARY EXAM: Negative for adenopathy. BACK: Negative for CVA tenderness. ABDOMEN: Soft, nontender, without palpable masses. PELVIC EXAM: Normal external genitalia mild atrophy. Cervix and vagina appear normal with mild atrophy. There is no unusual discharge. There is no evidence of prolapse. The uterus is midposition, nongravid size and nontender. There are no palpable adnexal masses or tenderness. RECTAL EXAM: Rectovaginal exam is negative for mass or tenderness and is negative for occult blood. EXTREMITIES: Nontender. IMPRESSION: 1. 58-year-old menopausal female with normal gynecologic exam. PLAN: 1. Pap smear was deferred since she had a negative Pap smear cotest on 09/26/2021. 2. Self breast awareness was discussed with the patient. We have also discussed symptoms associated with inflammatory breast cancer. 3. Screening mammogram will be done today. 4. Osteoporosis prevention was discussed. I have stressed the importance of a dequate calcium, vitamin D and regular exercise. Recommended amounts of calcium and vitamin D were also discussed. A bone density test will be done today and this will be a baseline study. 5. She was advised to return in one year for her annual well woman exam.
--- NOTE | 2023-10-08 11:44 | BD ---
EXAMINATION TYPE: Axial Bone Density DATE OF EXAM: 10/08/2023 CLINICAL HISTORY: 58 years old Female. ICD-10 CODE: Z01.419 gyno and Bone density Height: 5 ft 5 in Weight: 161 FRAX RISK QUESTIONS: Alcohol (3 or more units per day): no Family History (Parent hip fracture): no Glucocorticoids (More than 3mos): no (Ex: prednisone, prednisolone, methylprednisolone, dexamethasone, and hydrocortisone). History of Fracture in Adulthood: yes Secondary Osteoporosis: 1. Type 1 Diabetes: no 2. Hyperthyroidism: no 3. Menopause before 45: unsure 4. Malnutrition: no 5. Chronic liver disease: no Rheumatoid Arthritis: no Current Tobacco Use: no RISK FACTORS HISTORY OF: History of Wrist Fracture: left When: long ago Surgery to Spine/Hip(right/left)/Wrist (right/left): none MEDICATIONS: Thyroid Medications: yes Which medication: levothyroxine How Long: over 30 years Osteoporosis Medications: none EXAM MEASUREMENTS: Bone mineral densitometry was performed using the [employer]. Bone mineral density as measured about the Lumbar spine is: ----- L1-L4(G/cm2): 1.195 T Score Values are as follows: ----- L1: -0.3 ----- L2: 0.1 ----- L3: -0.2 ----- L4: 0.8 ----- L1-L4: 0.1 Z Score Values are as follows: ----- L1: 0.6 ----- L2: 1.0 ----- L3: 0.8 ----- L4: 1.7 ----- L1-L4: 1.1 Bone mineral density has: decreased -19.3 % since study of: 2013 Bone mineral density about the R hip (g/cm2): 0.945 Bone mineral density about the L hip (g/cm2): 0.958 T Score values are as follows: -----R Neck: -0.7 -----L Neck: -0.6 -----R Total: 0.2 -----L Total: 0.5 Z Score values are as follows: -----R Neck: 0.4 -----L Neck: 0.5 -----R Total: 0.9 -----L Total: 1.2 Bone mineral density has: decreased -13.7 % since study of: 2013 FRAX%s: The graph provided illustrates a 11.7 % chance for a major osteoporotic fx and a 0.5 % chance for the hips probability for fx in 10 years time. IMPRESSION: Normal (Values between +1 and -1 indicate normal bone mass). Consider repeating this study in 5 year s or sooner if there is some new clinical indication. NOTE: T-SCORE=SD OF THE YOUNG ADULT MEAN.
--- NOTE | 2023-10-09 13:10 | MM ---
Reason for Exam: Screening (asymptomatic). Last screening mammogram was performed 12 month(s) ago. Patient History: Menarche at age 10. First Full-Term at age 32. Late child-bearing (after 30). Postmenopausal. Patient used Hormonal Contraceptives for 1 year. 10/14/2020, Benign Core Biopsy on the left side. 03/17/2019, Benign Core Biopsy on the right side. 08/18/2018, Benign Core Biopsy on the right side. 05/06/2018, Benign Core Biopsy on the right side. 04/04/2018, MG discontinued stereo core RT on the right side. Risk Values: Debbi 5 year model risk: 3.0%. NCI Lifetime model risk: 14.6%. Prior Study Comparison: 03/17/2019 Right Diagnostic Mammogram, [facility]. 09/23/2019 Bilateral Diagnostic Mammogram, [facility]. 09/23/2020 Bilateral Screening Mammogram, [facility]. 10/06/2020 Left Diagnostic Mammogram, [facility]. 04/17/2021 Left Diagnostic Mammogram, [facility]. 09/26/2021 Bilateral MG 3D diag mammo w/cad RUCHI, [facility]. 10/02/2022 Bilateral MG 3D screening mammo w/cad, [facility]. Tissue Density: The breasts are extremely dense, which lowers the sensitivity of mammography. Findings: Analyzed By CAD. There is no suspicious group of microcalcifications or new suspicious mass in either breast. Overall Assessment: Benign, BI-RAD 2 Management: Screening Mammogram of both breasts in 1 year. . Patient should continue monthly self-breast exams. A clinical breast exam by your physician is recommended on an annual basis. This exam should not preclude additional follow-up of suspicious palpable abnormalities. Note on Debbi scores and lifetime risk: 1. A Debbi score greater than 3% is considered moderate risk. If this is the case, consider specialist referral to assess eligibility for a risk reducing agent. 2. If overall lifetime risk for the development of breast cancer is 20% or higher, the patient may qualify for future screening with alternating mammogram and breast MRI. Electronically signed and approved by: Sarthak Luu M.D. Radiologis
== END ==
LOC: WWCWWP 07:42
PROVIDERS: ATTEND Obstetrics & Gynecology
DX: Z12.31 Encounter for screening mammogram for malignant neoplasm of breast (principal); Z78.0 Asymptomatic menopausal state; Z91.048 Other nonmedicinal substance allergy status; Z87.891 Personal history of nicotine dependence
CPT/HCPCS: 77063; 77067; 77080